=== PATIENT | female | born 1965 | race Caucasian/White ===

== ENCOUNTER 2017-05-04 09:42 | Emergency (ER) | payer OTHER ==
[~2017-05-04] VITALS: Ht 160 cm; Wt 63.5 kg
[~2017-05-04 09:42] MED LIST: ACET325 PO; ALBU3IS INH; ALBU90OI INH; ALBU90OI6; ALBU90OI6 INH; ALPR.5; ALUMAG30SU PO; BENZ100A PO; BUPR100 PO; CARV6.25 PO; COMBIVENT RESPIM4 GM INH; CONEST.625; CYCL10; CYCL10 PO; Chantix1 EACH; DIAZ5 PO; DIVA250EC PO; DOC250 PO; DOCU100 PO; DOXY100 PO; DULERA 200 MCG/13 GM INH; DULOXETINE HCL40 MG PO; ENOX40I SC; ERGO400 PO; FAMO20 PO; FERR325 PO; FLUO10 PO; FLUO20 PO; Ferrous Sulfat325 MG; GABA100 PO; GABA300 PO; HYDACE10B PO; HYDACE5; HYDACE5 PO; HYDPAM50 PO; Ipratr-Albuterol3 ML IH; K-TAB ER20 MEQ PO; LACT10SY PO; LAMO25 PO; LEVFLO500 PO; LIDO2TG30 TOP; LORA1 PO; MOME220I INH; NAPR375 PO; NAPR500 PO; NICO14TP TOP; OMEP20ER PO; OMEPRAZOLE; OXYC5; OXYC5 PO; PENVK250; PENVK500 PO; PRED20 PO; PREG50 PO; PROCODE120 PO; PROM25 PO; Percocet 5-3251 EACH PO; Prednisone20 MG PO; Proventil5 MG/1 ML INH; RXHYDACE PO; RXONDA4ODT MM; RXPROM25 PO; Senna8.6 M1 PO; TEMA15; TEMA15 PO; TEMA30; TEMA30 PO; TIOT18 INH; TRAM50 PO; TRAZ100; TRAZ100 PO; TRAZ150T57 PO; TRAZ50 PO; VANCO 1 GR1 GM/250 M IV; VICODIN; Ventolin Soln3 ML INH; XARELTO15 MG PO; Zithromax250 MG PO
[2017-05-04 10:35] LABS: BASOPHILS ABSOLUTE AUTO 0.04 K/mm3 (0.00-0.23); BASOPHILS PERCENT AUTO 1 % (0-2); EOSINOPHILS ABSOLUTE AUTO 0.15 K/mm3 (0.00-0.68); EOSINOPHILS PERCENT AUTO 2 % (0-6); Hemoglobin 13.1 g/dL (11.5-16.0); IMMATURE GRAN ABSOLUTE AUTO 0.03 K/mm3 (0.00-0.10); IMMATURE GRAN PERCENT AUTO 1 % (0-1); LYMPHOCYTES ABSOLUTE AUTO 3.39 K/mm3 (0.84-5.20); LYMPHOCYTES PERCENT AUTO 53 % (21-46); MONOCYTES ABSOLUTE AUTO 0.51 K/mm3 (0.16-1.47); MONOCYTES PERCENT AUTO 8 % (4-13); Mean Corpuscular HGB 31.4 pg (26.0-34.0); Mean Corpuscular HGB Conc 33.6 g/dL (31.5-36.5); Mean Corpuscular Volume 94 fL (80-100); Mean Platelet Volume 10.9 fL (9.1-12.4); NEUTROPHILS ABSOLUTE AUTO 2.27 K/mm3 (1.96-9.15); NEUTROPHILS PERCENT AUTO 36 % (41-73); Platelet Count 309 K/mm3 (150-400); RDW Coefficient Variation 13.5 % (11.7-14.2); Red Blood Cell Count 4.17 M/mm3 (3.80-5.20); White Blood Cell Count 6.39 K/mm3 (4.00-11.30)
[2017-05-04 10:52] LABS: Anion Gap 8 mmol/L (6-16); Blood Urea Nitrogen 9 mg/dL (8-24); Bun/Creatinine Ratio 11.1 (12.0-20.0); CO2, Blood 23 mmol/L (21-32); Calcium, Blood 9.2 mg/dL (8.5-10.1); Chloride, Blood 100 mmol/L (98-108); Creatinine, Blood 0.81 mg/dL (0.40-1.00); Glomerular Filtration Rate >60 (60-); Glucose, Blood 78 mg/dL (70-99); Sodium, Blood 131 mmol/L (136-145)
[2017-05-04] MEDS ORDERED: Motion Sickness25 M1 PO (11:18)
== END 2017-05-04 11:26 | disposition home or self-care (01) ==
LOC: ER 09:42
PROVIDERS: Emergency Medicine
DX: R42 Dizziness and giddiness (principal); J44.9 Chronic obstructive pulmonary disease, unspecified; F17.200 Nicotine dependence, unspecified, uncomplicated; F43.10 Post-traumatic stress disorder, unspecified; F31.9 Bipolar disorder, unspecified; I50.9 Heart failure, unspecified; Z79.899 Other long term (current) drug therapy; Z79.52 Long term (current) use of systemic steroids; Z79.2 Long term (current) use of antibiotics
CPT/HCPCS: 36415; 80048; 85025; 99283

== ENCOUNTER 2017-12-14 12:15 | Emergency (ER) | payer OTHER ==
[~2017-12-14] VITALS: Ht 160 cm; Wt 56.7 kg
[~2017-12-14 12:15] MED LIST changes: +Motion Sickness25 M1 PO
[2017-12-14] MEDS ORDERED: KETO10 PO (13:27)
[2017-12-14] MEDS ORDERED: METPRE4DP PO (13:27)
== END 2017-12-14 13:53 | disposition home or self-care (01) ==
LOC: ER 12:15
DX: M54.41 Lumbago with sciatica, right side (principal); M51.37 Other intervertebral disc degeneration, lumbosacral region; F31.9 Bipolar disorder, unspecified; I50.9 Heart failure, unspecified; J44.9 Chronic obstructive pulmonary disease, unspecified; F17.200 Nicotine dependence, unspecified, uncomplicated; Z88.8 Allergy status to other drugs, medicaments and biological substances; Z88.5 Allergy status to narcotic agent; Z79.899 Other long term (current) drug therapy; Z79.52 Long term (current) use of systemic steroids
CPT/HCPCS: 72100; 96372; 99283-25; J1885

== ENCOUNTER → 2018-01-09 | Outpatient (CLI) | payer OTHER ==
[~2018-01-09] MED LIST changes: +KETO10 PO; +METPRE4DP PO
[2018-01-17 15:08] LABS: COTININE 1320.4 ng/mL (.); NICOTINE 5191.8 ng/mL (.)
== END | disposition home or self-care (01) ==
LOC: LAB 11:00 → LAB SHORT 11:00
PROVIDERS: Nurse Practitioner Family
DX: M51.36 Other intervertebral disc degeneration, lumbar region (principal); F17.200 Nicotine dependence, unspecified, uncomplicated
CPT/HCPCS: G0480

== ENCOUNTER 2018-01-14 09:09 | Emergency (ER) | payer OTHER ==
[~2018-01-14] VITALS: Ht 160 cm; Wt 56.7 kg
[2018-01-14] MEDS ORDERED: TRAZ50 PO (09:57)
[2018-01-14] MEDS ORDERED: Prednisone20 MG PO (10:27)
== END 2018-01-14 10:20 | disposition home or self-care (01) ==
LOC: ER 09:09
DX: G89.29 Other chronic pain (principal); M54.5 Low back pain; F31.9 Bipolar disorder, unspecified; I50.9 Heart failure, unspecified; J44.9 Chronic obstructive pulmonary disease, unspecified; Z87.891 Personal history of nicotine dependence; Z88.8 Allergy status to other drugs, medicaments and biological substances; Z88.5 Allergy status to narcotic agent; Z79.899 Other long term (current) drug therapy; Z79.51 Long term (current) use of inhaled steroids; Z79.52 Long term (current) use of systemic steroids
CPT/HCPCS: 96374; 99283-25; J2930; Q0177

== ENCOUNTER → 2018-02-02 | Outpatient (CLI) | payer OTHER | LOC: LAB 19:55 → LAB SHORT 19:55 | DX: L02.01 Cutaneous abscess of face (principal) | CPT/HCPCS: 87070; 87077; 87147; 87186; 87205 ==

== ENCOUNTER 2018-06-09 18:01 | Inpatient (IN) | payer OTHER ==
[~2018-06-09] VITALS: Ht 157.5 cm; Wt 53.7 kg
[~2018-06-09 18:01] MED LIST changes: -Chantix1 EACH; +DULO60 PO; -DULOXETINE HCL40 MG PO; -Ferrous Sulfat325 MG; +Ferrous Sulfat325 MG PO; -GABA100 PO; -OMEPRAZOLE; +OMEPRAZOLE MAGN20 MG PO; +VARE1 PO
[2018-06-09 18:57] LABS: BASOPHILS ABSOLUTE AUTO 0.06 K/mm3 (0.00-0.23); BASOPHILS PERCENT AUTO 0 % (0-2); EOSINOPHILS ABSOLUTE AUTO 0.15 K/mm3 (0.00-0.68); EOSINOPHILS PERCENT AUTO 1 % (0-6); Hematocrit 37.2 % (33.0-51.0); Hemoglobin 11.9 g/dL (11.5-16.0); IMMATURE GRAN ABSOLUTE AUTO 0.04 K/mm3 (0.00-0.10); IMMATURE GRAN PERCENT AUTO 0 % (0-1); LYMPHOCYTES ABSOLUTE AUTO 2.95 K/mm3 (0.84-5.20); LYMPHOCYTES PERCENT AUTO 21 % (21-46); MONOCYTES ABSOLUTE AUTO 0.86 K/mm3 (0.16-1.47); MONOCYTES PERCENT AUTO 6 % (4-13); Mean Corpuscular HGB 29.8 pg (26.0-34.0); Mean Corpuscular Volume 93 fL (80-100); Mean Platelet Volume 10.2 fL (9.1-12.4); NEUTROPHILS ABSOLUTE AUTO 9.87 K/mm3 (1.96-9.15); NEUTROPHILS PERCENT AUTO 71 % (41-73); Platelet Count 254 K/mm3 (150-400); RDW Coefficient Variation 14.4 % (11.7-14.2); RDW Standard Deviation 49.5 fL (35.1-46.3); Red Blood Cell Count 3.99 M/mm3 (3.80-5.20); White Blood Cell Count 13.93 K/mm3 (4.00-11.30)
[2018-06-09 19:45] LABS: Alanine Aminotransfer (ALT/SGP 17 U/L (12-78); Albumin, Blood 3.4 g/dL (3.4-5.0); Albumin/Globulin Ratio 1.1 (0.8-1.8); Alk Phos 79 U/L (50-136); Anion Gap 7 mmol/L (6-16); Aspartate Aminotrans (AST/SGOT 7 U/L (12-37); Bilirubin, Total 0.2 mg/dL (0.1-1.0); Blood Urea Nitrogen 6 mg/dL (8-24); Bun/Creatinine Ratio 10.5 (12.0-20.0); CO2, Blood 24 mmol/L (21-32); Calcium, Blood 8.3 mg/dL (8.5-10.1); Chloride, Blood 105 mmol/L (98-108); Creatinine, Blood 0.57 mg/dL (0.40-1.00); Globulin, Blood 3.1 g/dL (2.2-4.0); Glomerular Filtration Rate >60 (60-); Glucose, Blood 93 mg/dL (70-99); Potassium, Blood 3.2 mmol/L (3.5-5.5); Sodium, Blood 136 mmol/L (136-145); Total Protein, Blood 6.5 g/dL (6.4-8.2)
[2018-06-09 20:28] LABS: Magnesium, Blood 2.1 mg/dL (1.6-2.4); Phosphorus, Blood 2.9 mg/dL (2.5-4.9)
[2018-06-09] MEDS ORDERED: GABA600 PO (20:37)
[2018-06-09] MEDS ORDERED: DICL75ER PO (20:41)
[2018-06-09 21:17] LABS: Triglycerides 107 mg/dL (30-160)
[2018-06-09 21:36] LABS: Valproic Acid 3.4 ug/mL (50.0-100.0)
--- NOTE | 2018-06-09 23:54 | NUR ---
06/09/18 7707 ATTEMPTING ANOTHER IV SITE PT MOVES LEFT ARM FREQUENTLY AND OCCLUDES FLOW. THREE RNS HAVE ATTEMPTED NEW IV SITE AND ARE STILL ATTEMPTING. PT NPO. PAIN MED GIVEN AND NOW MORE COMFORTABLE. JOKING WITH NURSES.
[2018-06-10 00:09] LABS: U Amphetamine Screen Not Detected; U Barbituate Screen Not Detected; U Benzodiazapine Screen Not Detected; U Buprenorphine Screen Not Detected; U Cannabinoids Screen Not Detected; U Cocaine Screen Not Detected; U Methadone Screen Not Detected; U Methamphetamine Screen Not Detected; U Opiates Screen DETECTED; U Oxycodone Screen Not Detected; U Phencyclidine Screen Not Detected; U Propoxyphene Screen Not Detected
--- NOTE | 2018-06-10 05:25 | NUR ---
06/10/18 0536 SAM PAGED FOR PALLIATIVE CARE. MESSAGE LEFT FOR CONSULT.
[2018-06-10 06:16] LABS: Source, Urine Clean Catch
[2018-06-10 06:18] LABS: Bilirubin, Urine Neg (Neg); Blood, Urine Neg (Neg); Glucose Qualitative, Urine Neg (Neg); Ketones, Urine Neg (Neg); Leukocyte Esterase, Urine Neg (Neg); Nitrite, Urine Neg (Neg); Protein, Urine Neg (Neg); Specific Gravity, Urine 1.005 (1.003-1.022); Urobilinogen, Urine NORM (Normal)
[2018-06-10 06:23] LABS: Appearance, Urine Clear (Clear); Color, Urine Pale Yellow (P-Yellow)
--- NOTE | 2018-06-10 07:37 | NUR ---
06/10/18 0600 Sleeping at present. VITALS STABLE. FREQUENTS CALLS THROUGHOUT NIGHT FOR MEDS. VITALS STABLE. VOIDING QS IN BEDPAN.
[2018-06-10 08:11] LABS: Hematocrit 39.6 % (33.0-51.0); Hemoglobin 12.7 g/dL (11.5-16.0); Mean Corpuscular HGB 29.3 pg (26.0-34.0); Mean Corpuscular HGB Conc 32.1 g/dL (31.5-36.5); Mean Corpuscular Volume 91 fL (80-100); Mean Platelet Volume 10.7 fL (9.1-12.4); Platelet Count 275 K/mm3 (150-400); RDW Coefficient Variation 14.6 % (11.7-14.2); RDW Standard Deviation 48.7 fL (35.1-46.3); Red Blood Cell Count 4.34 M/mm3 (3.80-5.20); White Blood Cell Count 13.84 K/mm3 (4.00-11.30)
[2018-06-10 08:24] LABS: Alanine Aminotransfer (ALT/SGP 13 U/L (12-78); Alk Phos 81 U/L (50-136); Anion Gap 6 mmol/L (6-16); Aspartate Aminotrans (AST/SGOT 7 U/L (12-37); Bilirubin, Total 0.4 mg/dL (0.1-1.0); Blood Urea Nitrogen 4 mg/dL (8-24); Bun/Creatinine Ratio 8.6 (12.0-20.0); CO2, Blood 23 mmol/L (21-32); Calcium, Blood 8.4 mg/dL (8.5-10.1); Chloride, Blood 111 mmol/L (98-108); Creatinine, Blood 0.47 mg/dL (0.40-1.00); Globulin, Blood 3.1 g/dL (2.2-4.0); Glomerular Filtration Rate >60 (60-); Glucose, Blood 99 mg/dL (70-99); Sodium, Blood 140 mmol/L (136-145); Total Protein, Blood 6.1 g/dL (6.4-8.2)
--- NOTE | 2018-06-10 15:37 | NUR ---
Patient gave me permission to work with her as a student nurse at 1500.
--- NOTE | 2018-06-10 18:49 | NUR ---
PT A/OX3, COOPERATIVE, THE PT IS ABLE TO GET UP WITH MINIMAL ASSIST HOWEVER DECLINED TO GET UP TODAY EVEN TO GO TO THE BATHROOM, THE PT WAS MEDICATED Q 2HRS FOR ABD PAIN, AND WAS ENCOURAGED TO ONLY TAKE SMALL AMOUNTS OF HER DIET AT A TIME, AND TO STOP IF SHE HAD INCREASING PAIN AND NAUSEA, THE PT APPEARS TO BE BREATHING EASILY RA, CALL LIGHT IN REACH WILL
--- NOTE | 2018-06-11 05:57 | NUR ---
SHIFT SUMMARY PT IS A&O. ADMITTED FOR ACUTE PANCREATITIS. STILL UNABLE TO TOLERATE CL DIET. HAS ONLY HAD SIPS AND CHIPS THIS SHIFT, SHE HAD ATTEMPTED CL'S PRIOR TO START OF SHIFT AND FOUND PAIN INCREASING. PT DENIED NAUSEA, BUT REPORTED PROBLEMS WITH ACID REFLUX AT HS AND THEREFORE DECLINED MOST PO MEDS. LAST BM AT LEAST 2 DAYS PRIOR TO ADMIT. AT START OF SHIFT, PT REPORTED PAIN IN UPPER ABD, BUT THIS AM SHE IS REPORTING BLOATING AND LOWER ABD PAIN WELL. HAD REFUSED STOOL SOFTNER ALL DAY YESTERDAY, BUT REPORTS THAT SHE HAS TO TAKE IT AT HOME DAILY. PT POSSIBLY WITH CONSTIPATION WELL PANCREATITIS. PT ALSO HAS NOT WANTED TO GET UP TO BSC AND HAS BEEN USING BEDPAN TO VOID. PT ENCOURAGED TO GET UP AND MOVE AROUND SOME, IF EVEN TO GET TO BSC TO VOID. HX OF COPD, BIPOLAR, AND HEP C+. IVF'S INFUSING PER EMAR. MEDICATED FOR PAIN PRN. PT CALLS WHEN AWAKE, WHETHER TIME FOR MEDS OR NOT AND THEN GOES BACK TO SLEEP. PT ABLE TO SLEEP A LITTLE MORE THAN SHE IS AWARE. RESTING QUIETLY AT THIS TIME. CALL LT IN REACH.
[2018-06-11 06:09] LABS: BASOPHILS ABSOLUTE AUTO 0.05 K/mm3 (0.00-0.23); BASOPHILS PERCENT AUTO 0 % (0-2); EOSINOPHILS ABSOLUTE AUTO 0.13 K/mm3 (0.00-0.68); EOSINOPHILS PERCENT AUTO 1 % (0-6); Hematocrit 40.3 % (33.0-51.0); Hemoglobin 12.8 g/dL (11.5-16.0); IMMATURE GRAN ABSOLUTE AUTO 0.05 K/mm3 (0.00-0.10); IMMATURE GRAN PERCENT AUTO 0 % (0-1); LYMPHOCYTES ABSOLUTE AUTO 3.34 K/mm3 (0.84-5.20); LYMPHOCYTES PERCENT AUTO 21 % (21-46); MONOCYTES ABSOLUTE AUTO 1.07 K/mm3 (0.16-1.47); MONOCYTES PERCENT AUTO 7 % (4-13); Mean Corpuscular HGB 29.2 pg (26.0-34.0); Mean Corpuscular HGB Conc 31.8 g/dL (31.5-36.5); Mean Corpuscular Volume 92 fL (80-100); Mean Platelet Volume 12.1 fL (9.1-12.4); NEUTROPHILS ABSOLUTE AUTO 11.33 K/mm3 (1.96-9.15); NEUTROPHILS PERCENT AUTO 71 % (41-73); NRBC ABSOLUTE 0.02 K/mm3 (0.00-0.02); NRBC Auto 0.1 /100 WBC (0.0-0.2); Platelet Count 204 K/mm3 (150-400); RDW Coefficient Variation 14.7 % (11.7-14.2); RDW Standard Deviation 49.5 fL (35.1-46.3); Red Blood Cell Count 4.39 M/mm3 (3.80-5.20); White Blood Cell Count 15.97 K/mm3 (4.00-11.30)
[2018-06-11 06:31] LABS: Alanine Aminotransfer (ALT/SGP 13 U/L (12-78); Albumin/Globulin Ratio 0.8 (0.8-1.8); Alk Phos 87 U/L (50-136); Amylase, Blood 247 U/L (25-115); Anion Gap 8 mmol/L (6-16); Aspartate Aminotrans (AST/SGOT 26 U/L (12-37); Bilirubin, Total 0.7 mg/dL (0.1-1.0); Blood Urea Nitrogen 3 mg/dL (8-24); Bun/Creatinine Ratio 6.3 (12.0-20.0); CO2, Blood 22 mmol/L (21-32); Calcium, Blood 8.8 mg/dL (8.5-10.1); Chloride, Blood 109 mmol/L (98-108); Creatinine, Blood 0.48 mg/dL (0.40-1.00); Globulin, Blood 3.7 g/dL (2.2-4.0); Glomerular Filtration Rate >60 (60-); Glucose, Blood 85 mg/dL (70-99); Potassium, Blood 4.8 mmol/L (3.5-5.5); Sodium, Blood 139 mmol/L (136-145); Total Protein, Blood 6.7 g/dL (6.4-8.2)
--- NOTE | 2018-06-11 14:33 | NUR ---
Marleny was talkative and welcoming of companionship. She tells me she has been "really sick for a long time." She admits to feeling tired of pain. She lives alone with her cats and worried about them while she's here. Marleny tells me her primary emotional support comes from friends, but she spends most of her time alone. She seemed to enjoy being herd and affirmed, and was appreciative of prayer. She knows she has a chronic illness, but she expects to be eve to live free from all pain. She is satisfied being a full-code. I will remain available.
--- NOTE | 2018-06-11 16:31 | NUR ---
PT A/OX3, PLEASANT AND COOPERATIVE, THE PT IS UP WITH MINIMAL ASSIST TO THE BATHROOM TODAY, PT REPORTED BEING CONSTIPATED AND AGREED TO TAKE THE ORDERED STOOL SOFTNER TODAY, PT WAS MEDICATED FOR PAIN T/O THE DAY CONSISTANTLY, HOWEVER THE PT WAS ABLE TO TAKE SOME CLEARS JELLO AND DRINKS TODAY WITH OUT EMISIS, THE PT WAS NAUSEATED HOWEVER AND MEDICATED FOR THAT, VISITOR AT THE BEDSIDE TODAY, CALL LIGHT IN REACH
--- NOTE | 2018-06-11 18:00 | NUR ---
Initial Visit: Palliative Care Consult for symptom management. Pt is A&O and reports 7/10 pain. She reports the current regimen is helpul but does not last long and the pain is back. Pt reports that she is of [employer] and lives at home alone with her dog and cat. Engaged in therapeutic conversation about pain. Pt reports significant anxiety when having pain. Pt is tearful at times during visit. Discussed distraction techniques to keep her mind off the pain such as reading, deep breathing techniques, or watching television. Educated Pt on pain and anxiety and how a cascade effect can occur. Pt alsor reports difficulty sleeping at night due to the pain and anxiety. Discussed with Pt of the option for anxiety medication which may manage her anxiety, sleep, and pain. Pt is agreeable to this idea. Pt reports no other concerns at this time. Spoke with Pt's nurse Joselito and he is agreeable to plan for anti anxiety medication. No other concerns reported by Joselito. Spoke with Dr Anna and requested Ativan for anxiety and he is agreeable. Dr Anna reports that he will place the order. Plan is for continued monitoring of symptom management. Will remain available.
--- NOTE | 2018-06-12 03:52 | NUR ---
SHIFT SUMMARY NO ACUTE CHANGES TO PRESENT THIS SHIFT. PT HAS BEEN INDEPENDANT TO [facility] [place] TONIGHT AND DOING FINE. DOES NOT APPEAR TO BE IN PAIN WHILE IN BED OR UP AMBULATING. PT STILL CALLS FOR PAIN MEDICATION WHEN EVER SHE IS AWAKE, EVEN IF SHE JUST GOT IT AND FORGOT WHAT TIME IT WAS. PT SEEMS TO USE THE DILAUDID TO PUT HER TO SLEEP, BUT YET SHE REFUSED HER TRAZADONE. SEEMS TO ACTUALLY BE HAPPIER WITH SOMEONE IN THERE TO TALK WITH HER MORE THAN ANYTHING. STILL NO BM, BUT REPORTED THAT SHE IS "PASSING GAS". WENT DOWN TO IMAGING AT START OF SHIFT FOR CT. TOLERATED WELL. INDEPENDANT FROM W/C TO BED. MUCH IMPROVEMENT FROM YESTERDAY WHEN [facility]OULD [facility] BE WILLING TO [facility]. PT HAS BEEN TOLERATING CL DIET. REPORTED THAT SHE IS HUNGRY AND WOULD LIKE SOMETHING WITH SUBSTANCE. CALL LT IN REACH.
[2018-06-12 08:14] LABS: BASOPHILS ABSOLUTE AUTO 0.06 K/mm3 (0.00-0.23); BASOPHILS PERCENT AUTO 1 % (0-2); EOSINOPHILS ABSOLUTE AUTO 0.53 K/mm3 (0.00-0.68); EOSINOPHILS PERCENT AUTO 4 % (0-6); Hematocrit 34.1 % (33.0-51.0); Hemoglobin 11.1 g/dL (11.5-16.0); IMMATURE GRAN ABSOLUTE AUTO 0.03 K/mm3 (0.00-0.10); IMMATURE GRAN PERCENT AUTO 0 % (0-1); LYMPHOCYTES ABSOLUTE AUTO 3.26 K/mm3 (0.84-5.20); LYMPHOCYTES PERCENT AUTO 25 % (21-46); MONOCYTES ABSOLUTE AUTO 0.92 K/mm3 (0.16-1.47); MONOCYTES PERCENT AUTO 7 % (4-13); Mean Corpuscular HGB 30.2 pg (26.0-34.0); Mean Corpuscular HGB Conc 32.6 g/dL (31.5-36.5); Mean Corpuscular Volume 93 fL (80-100); Mean Platelet Volume 10.6 fL (9.1-12.4); NEUTROPHILS ABSOLUTE AUTO 8.08 K/mm3 (1.96-9.15); NEUTROPHILS PERCENT AUTO 63 % (41-73); Platelet Count 223 K/mm3 (150-400); RDW Coefficient Variation 14.9 % (11.7-14.2); RDW Standard Deviation 51.5 fL (35.1-46.3); Red Blood Cell Count 3.67 M/mm3 (3.80-5.20); White Blood Cell Count 12.88 K/mm3 (4.00-11.30)
[2018-06-12 08:43] LABS: Amylase, Blood 72 U/L (25-115)
[2018-06-12 08:50] LABS: Alanine Aminotransfer (ALT/SGP 7 U/L (12-78); Albumin, Blood 2.6 g/dL (3.4-5.0); Albumin/Globulin Ratio 0.8 (0.8-1.8); Alk Phos 72 U/L (50-136); Anion Gap 7 mmol/L (6-16); Aspartate Aminotrans (AST/SGOT 9 U/L (12-37); Bilirubin, Total 0.5 mg/dL (0.1-1.0); Blood Urea Nitrogen 3 mg/dL (8-24); Bun/Creatinine Ratio 5.5 (12.0-20.0); CO2, Blood 24 mmol/L (21-32); Calcium, Blood 8.5 mg/dL (8.5-10.1); Chloride, Blood 110 mmol/L (98-108); Creatinine, Blood 0.55 mg/dL (0.40-1.00); Globulin, Blood 3.1 g/dL (2.2-4.0); Glomerular Filtration Rate >60 (60-); Glucose, Blood 82 mg/dL (70-99); Potassium, Blood 4.5 mmol/L (3.5-5.5); Sodium, Blood 141 mmol/L (136-145); Total Protein, Blood 5.7 g/dL (6.4-8.2)
--- NOTE | 2018-06-12 13:39 | NUR ---
pt discharging home states pain is much improved. She remebered Navneet and appreciated his care. Pt is high risk readmission . Will have navneet follow up with outpatient phone call.
[2018-06-12] MEDS ORDERED: MOTION RELIEF25 MG PO (14:09)
[2018-06-12] MEDS ORDERED: OXYC10ER PO (14:12)
[2018-06-12] MEDS ORDERED: LORA1 PO (14:12)
[2018-06-12] MEDS ORDERED: Promethazine12.5 M1 PO (14:13)
[2018-06-12] MEDS ORDERED: ONDA4ODT MM (14:13)
--- NOTE | 2018-06-12 15:26 | NUR ---
D/C INSTRUCTIONS PROVIDED AND EXPLAINED. IV REMOVED. MEDS FAXED [facility]. PT D/C VIA AMBULATION VIA [facility] AT 1320.
== END 2018-06-12 15:25 | disposition home or self-care (01) | DRG 439 ==
LOC: ER 18:01 → MEDS 20:43 → ENPENDDIS 06-12 15:06 → MEDS 06-12 15:25
PROVIDERS: Emergency Medicine; Family Medicine; Nurse Practitioner Acute Care; ADMIT Hospitalist
DX: K85.90 Acute pancreatitis without necrosis or infection, unspecified (principal); I50.32 Chronic diastolic (congestive) heart failure; B95.62 Methicillin resistant Staphylococcus aureus infection as the cause of diseases classified elsewhere; J44.9 Chronic obstructive pulmonary disease, unspecified; F32.9 Major depressive disorder, single episode, unspecified; D50.9 Iron deficiency anemia, unspecified; E87.6 Hypokalemia; M79.7 Fibromyalgia; F31.9 Bipolar disorder, unspecified; F41.9 Anxiety disorder, unspecified; F17.210 Nicotine dependence, cigarettes, uncomplicated; Z88.8 Allergy status to other drugs, medicaments and biological substances; Z86.718 Personal history of other venous thrombosis and embolism; Z79.52 Long term (current) use of systemic steroids; Z79.899 Other long term (current) drug therapy
CPT/HCPCS: 36415; 71250; 74022; 74177; 76700; 80053; 80164; 81003; 82150; 83690; 83735; 84100; 84478; 85025; 85027; 87081; 94010; 94640; 94664; 94667; 94760; 94762; 96361; 96374; 96375; 96376; 98960; 99285-25; 99407; G0480; J1170; J1650; J2405; J2550; J3480; J7030; J7050; Q9967

== ENCOUNTER 2018-07-27 07:13 | Day surgery (SDC) | payer OTHER ==
[~2018-07-27] VITALS: Ht 157.5 cm; Wt 61.7 kg
[~2018-07-27 07:13] MED LIST changes: +DICL75ER PO; +GABA600 PO; +MOTION RELIEF25 MG PO; +ONDA4ODT MM; +OXYC10ER PO; +Promethazine12.5 M1 PO
--- NOTE | 2018-07-27 07:28 | NUR ---
Ambulatory in Day SurgeryPatient states colon prep results clear. History, Chart, Medications and Allergies reviewed before start of procedure.Patient confirms NPO status and agrees with scheduled surgery. Pre-Op teaching done. Pt verbalizes understanding. Patient States Post-Procedure ride home has been arranged.
--- NOTE | 2018-07-27 08:20 | NUR ---
07/27/[address] HERE TO PROVIDE ANESTHESIA CARE, PLEASE SEE ANESTHESIA RECORD. History, Chart, Medications and Allergies reviewed before start of procedure. Patient confirms NPO status and agrees with scheduled surgery. PATIENT CONFIRMS NPO STATUS AND AGREES WITH SCHEDULED PROCEDURE. MONITOR INTACT WITH CONTINUOUS PULSE OXIMETRY AND INTERMITTENT BP. O2 VIA POM MASK AT 10 L.
--- NOTE | 2018-07-27 09:48 | NUR ---
Discharge instructions reviewed with patient. Patient verbalizes understanding. Copy given to patient to take home. Discharged via wheelchair to private car for ride home.
== END 2018-07-27 09:45 | disposition home or self-care (01) ==
LOC: ORSCMMR 07:13 → ORD 08:00 → ORSCMMR 08:00
PROVIDERS: Internal Medicine Gastroenterology
PROC: 0DBE8ZX Excision of Large Intestine, Via Natural or Artificial Opening Endoscopic, Diagnostic (ICD-10-PCS; principal; 2018-07-27 08:00)
PROC: 0DB48ZX Excision of Esophagogastric Junction, Via Natural or Artificial Opening Endoscopic, Diagnostic (ICD-10-PCS; principal; 2018-07-27 08:00)
PROC: 0DB98ZX Excision of Duodenum, Via Natural or Artificial Opening Endoscopic, Diagnostic (ICD-10-PCS; principal; 2018-07-27 08:00)
PROC: 0DB68ZX Excision of Stomach, Via Natural or Artificial Opening Endoscopic, Diagnostic (ICD-10-PCS; principal; 2018-07-27 08:00)
PROC: 0DBC8ZX Excision of Ileocecal Valve, Via Natural or Artificial Opening Endoscopic, Diagnostic (ICD-10-PCS; principal; 2018-07-27 08:00)
DX: R10.13 Epigastric pain (principal); R10.84 Generalized abdominal pain; D50.0 Iron deficiency anemia secondary to blood loss (chronic); K21.9 Gastro-esophageal reflux disease without esophagitis; K52.9 Noninfective gastroenteritis and colitis, unspecified; R11.0 Nausea; K44.9 Diaphragmatic hernia without obstruction or gangrene; I10 Essential (primary) hypertension; F17.210 Nicotine dependence, cigarettes, uncomplicated; B19.20 Unspecified viral hepatitis C without hepatic coma; Z79.899 Other long term (current) drug therapy
CPT/HCPCS: 88305; 88342; J2405; J3010; J7120

== ENCOUNTER 2018-08-04 18:40 | Emergency (ER) | payer OTHER ==
[~2018-08-04] VITALS: Ht 160 cm; Wt 46.7 kg
[2018-08-04 19:42] LABS: BASOPHILS ABSOLUTE AUTO 0.01 K/mm3 (0.00-0.23); BASOPHILS PERCENT AUTO 0 % (0-2); EOSINOPHILS ABSOLUTE AUTO 0.01 K/mm3 (0.00-0.68); EOSINOPHILS PERCENT AUTO 0 % (0-6); Hematocrit 37.7 % (33.0-51.0); Hemoglobin 12.1 g/dL (11.5-16.0); IMMATURE GRAN ABSOLUTE AUTO 0.02 K/mm3 (0.00-0.10); IMMATURE GRAN PERCENT AUTO 0 % (0-1); LYMPHOCYTES ABSOLUTE AUTO 0.52 K/mm3 (0.84-5.20); LYMPHOCYTES PERCENT AUTO 8 % (21-46); MONOCYTES ABSOLUTE AUTO 0.04 K/mm3 (0.16-1.47); MONOCYTES PERCENT AUTO 1 % (4-13); Mean Corpuscular HGB 29.6 pg (26.0-34.0); Mean Corpuscular HGB Conc 32.1 g/dL (31.5-36.5); Mean Corpuscular Volume 92 fL (80-100); Mean Platelet Volume 10.5 fL (9.1-12.4); NEUTROPHILS PERCENT AUTO 91 % (41-73); Platelet Count 299 K/mm3 (150-400); RDW Coefficient Variation 15.5 % (11.7-14.2); RDW Standard Deviation 52.9 fL (35.1-46.3); Red Blood Cell Count 4.09 M/mm3 (3.80-5.20)
[2018-08-04 20:08] LABS: Alanine Aminotransfer (ALT/SGP 17 U/L (12-78); Albumin, Blood 3.6 g/dL (3.4-5.0); Alk Phos 68 U/L (50-136); Anion Gap 6 mmol/L (6-16); Aspartate Aminotrans (AST/SGOT 14 U/L (12-37); Bilirubin, Total 0.2 mg/dL (0.1-1.0); Blood Urea Nitrogen 10 mg/dL (8-24); Bun/Creatinine Ratio 22.4 (12.0-20.0); CO2, Blood 22 mmol/L (21-32); Calcium, Blood 9.4 mg/dL (8.5-10.1); Chloride, Blood 108 mmol/L (98-108); Creatinine, Blood 0.45 mg/dL (0.40-1.00); Globulin, Blood 3.6 g/dL (2.2-4.0); Glomerular Filtration Rate >60 (60-); Glucose, Blood 148 mg/dL (70-99); Potassium, Blood 4.7 mmol/L (3.5-5.5); Sodium, Blood 136 mmol/L (136-145); Total Protein, Blood 7.2 g/dL (6.4-8.2)
== END 2018-08-04 21:55 | disposition home or self-care (01) ==
LOC: ER 18:40
PROVIDERS: Emergency Medicine
DX: R10.13 Epigastric pain (principal); R11.0 Nausea; R19.7 Diarrhea, unspecified; Z88.5 Allergy status to narcotic agent; Z79.899 Other long term (current) drug therapy; Z79.891 Long term (current) use of opiate analgesic; F43.10 Post-traumatic stress disorder, unspecified; F31.9 Bipolar disorder, unspecified; J44.9 Chronic obstructive pulmonary disease, unspecified; I50.9 Heart failure, unspecified
CPT/HCPCS: 36415; 80053; 83690; 85025; 96361; 96374; 96375; 99284-25; J1885; J2765; J3010; J7030

== ENCOUNTER 2018-08-25 17:02 | Emergency (ER) | payer OTHER ==
[~2018-08-25] VITALS: Ht 157.5 cm; Wt 52.2 kg
[2018-08-25 18:06] LABS: Source, Urine Clean Catch
[2018-08-25 18:13] LABS: Appearance, Urine Clear (Clear); Bilirubin, Urine Neg (Neg); Blood, Urine Neg (Neg); Color, Urine Yellow (P-Yellow); Glucose Qualitative, Urine Neg (Neg); Ketones, Urine Neg (Neg); Leukocyte Esterase, Urine Neg (Neg); Nitrite, Urine Neg (Neg); Protein, Urine Neg (Neg); Specific Gravity, Urine 1.015 (1.003-1.022); Urobilinogen, Urine NORM (Normal)
[2018-08-25 18:34] LABS: BASOPHILS ABSOLUTE AUTO 0.06 K/mm3 (0.00-0.23); BASOPHILS PERCENT AUTO 1 % (0-2); EOSINOPHILS ABSOLUTE AUTO 0.21 K/mm3 (0.00-0.68); EOSINOPHILS PERCENT AUTO 2 % (0-6); Hematocrit 34.8 % (33.0-51.0); Hemoglobin 11.1 g/dL (11.5-16.0); IMMATURE GRAN ABSOLUTE AUTO 0.04 K/mm3 (0.00-0.10); IMMATURE GRAN PERCENT AUTO 0 % (0-1); LYMPHOCYTES ABSOLUTE AUTO 3.58 K/mm3 (0.84-5.20); LYMPHOCYTES PERCENT AUTO 39 % (21-46); MONOCYTES ABSOLUTE AUTO 0.65 K/mm3 (0.16-1.47); MONOCYTES PERCENT AUTO 7 % (4-13); Mean Corpuscular HGB 29.8 pg (26.0-34.0); Mean Corpuscular HGB Conc 31.9 g/dL (31.5-36.5); Mean Corpuscular Volume 93 fL (80-100); Mean Platelet Volume 10.2 fL (9.1-12.4); NEUTROPHILS ABSOLUTE AUTO 4.71 K/mm3 (1.96-9.15); NEUTROPHILS PERCENT AUTO 51 % (41-73); Platelet Count 274 K/mm3 (150-400); RDW Standard Deviation 51.3 fL (35.1-46.3); Red Blood Cell Count 3.73 M/mm3 (3.80-5.20); White Blood Cell Count 9.25 K/mm3 (4.00-11.30)
[2018-08-25] MEDS ORDERED: TRAZ100 PO (18:57)
[2018-08-25] MEDS ORDERED: Norco 10-325 T1 EACH PO (18:58)
[2018-08-25] MEDS ORDERED: GABA300 PO (18:59)
[2018-08-25] MEDS ORDERED: Neurontin300 MG PO (18:59)
[2018-08-25 19:03] LABS: Alanine Aminotransfer (ALT/SGP 22 U/L (12-78); Albumin, Blood 3.2 g/dL (3.4-5.0); Alk Phos 64 U/L (50-136); Anion Gap 5 mmol/L (6-16); Aspartate Aminotrans (AST/SGOT 13 U/L (12-37); Bilirubin, Total 0.3 mg/dL (0.1-1.0); Blood Urea Nitrogen 5 mg/dL (8-24); Bun/Creatinine Ratio 7.5 (12.0-20.0); CO2, Blood 25 mmol/L (21-32); Calcium, Blood 8.8 mg/dL (8.5-10.1); Chloride, Blood 101 mmol/L (98-108); Creatinine, Blood 0.67 mg/dL (0.40-1.00); Globulin, Blood 3.1 g/dL (2.2-4.0); Glomerular Filtration Rate >60 (60-); Glucose, Blood 88 mg/dL (70-99); Potassium, Blood 3.6 mmol/L (3.5-5.5); Sodium, Blood 131 mmol/L (136-145); Total Protein, Blood 6.3 g/dL (6.4-8.2); Troponin I <0.015 ng/mL (0.000-0.040)
[2018-08-25] MEDS ORDERED: Prednisone20 MG PO (19:12)
== END 2018-08-25 19:20 | disposition home or self-care (01) ==
LOC: ER 17:02
PROVIDERS: Emergency Medicine
DX: J44.1 Chronic obstructive pulmonary disease with (acute) exacerbation (principal); R60.9 Edema, unspecified; I50.9 Heart failure, unspecified; F31.9 Bipolar disorder, unspecified; F43.10 Post-traumatic stress disorder, unspecified; M79.7 Fibromyalgia; F17.210 Nicotine dependence, cigarettes, uncomplicated; Z88.5 Allergy status to narcotic agent; Z79.899 Other long term (current) drug therapy; Z86.19 Personal history of other infectious and parasitic diseases
CPT/HCPCS: 36415; 71046; 80053; 81003; 83880; 84484; 85025; 93005; 93010; 94640; 99284-25; J7512

== ENCOUNTER → 2018-10-14 | Outpatient (CLI) | payer OTHER ==
[~2018-10-14] MED LIST changes: +Neurontin300 MG PO; +Norco 10-325 T1 EACH PO; +ZOLP10 PO
== END ==
LOC: PLD 07:32 → LAB SHORT 07:32
DX: N89.1 Moderate vaginal dysplasia (principal); A63.0 Anogenital (venereal) warts
CPT/HCPCS: 88305

== ENCOUNTER → 2018-10-14 | Outpatient (CLI) | payer OTHER | LOC: LAB SHORT 18:23 → LAB 18:23 | DX: N89.8 Other specified noninflammatory disorders of vagina (principal) | CPT/HCPCS: 87070; 87077; 87186; 87205 ==

== ENCOUNTER → 2018-10-16 | Outpatient (CLI) | payer OTHER | LOC: LAB UCHC 15:35 → LAB SHORT 15:35 | DX: N94.89 Other specified conditions associated with female genital organs and menstrual cycle (principal) | CPT/HCPCS: 87529 ==

== ENCOUNTER → 2018-10-22 | Outpatient (CLI) | payer OTHER ==
[2018-10-28 15:06] LABS: COTININE 245.3 ng/mL (.); NICOTINE 500.4 ng/mL (.)
== END | disposition home or self-care (01) ==
LOC: LAB SHORT 10:26 → LAB UCHC 10:26 → EDSTATUS 09-03 14:20 → LAB FUT 09-03 14:20
PROVIDERS: Nurse Practitioner Family
DX: F17.200 Nicotine dependence, unspecified, uncomplicated (principal)
CPT/HCPCS: G0480

== ENCOUNTER 2018-10-27 17:04 | Emergency (ER) | payer OTHER ==
[~2018-10-27] VITALS: Ht 157.5 cm; Wt 49.0 kg
[~2018-10-27 17:04] MED LIST changes: -ZOLP10 PO
== END 2018-10-27 17:56 | disposition home or self-care (01) ==
LOC: ER 17:04
DX: L02.01 Cutaneous abscess of face (principal); L03.211 Cellulitis of face; Z88.5 Allergy status to narcotic agent; Z79.899 Other long term (current) drug therapy; Z79.891 Long term (current) use of opiate analgesic; Z79.52 Long term (current) use of systemic steroids; F31.9 Bipolar disorder, unspecified; F43.10 Post-traumatic stress disorder, unspecified; I50.9 Heart failure, unspecified; J44.9 Chronic obstructive pulmonary disease, unspecified; F17.210 Nicotine dependence, cigarettes, uncomplicated; Z85.44 Personal history of malignant neoplasm of other female genital organs
CPT/HCPCS: 10060; 99283-25

== ENCOUNTER 2018-11-26 22:47 | Emergency (ER) | payer OTHER ==
[~2018-11-26] VITALS: Ht 157.5 cm; Wt 52.2 kg
[2018-11-26] MEDS ORDERED: ZOLP10 PO (23:04)
== END 2018-11-27 00:13 | disposition home or self-care (01) ==
LOC: ER 22:47
DX: T81.31XA Disruption of external operation (surgical) wound, not elsewhere classified, initial encounter (principal); I50.9 Heart failure, unspecified; F31.9 Bipolar disorder, unspecified; F43.10 Post-traumatic stress disorder, unspecified; J44.9 Chronic obstructive pulmonary disease, unspecified; F17.200 Nicotine dependence, unspecified, uncomplicated; Z88.5 Allergy status to narcotic agent; Z79.899 Other long term (current) drug therapy
CPT/HCPCS: 99283; A9270-GY

== ENCOUNTER 2019-02-08 12:51 | Emergency (ER) | payer OTHER ==
[~2019-02-08] VITALS: Ht 157.5 cm; Wt 44.0 kg
[~2019-02-08 12:51] MED LIST changes: +ZOLP10 PO
== END 2019-02-08 20:03 | disposition left against medical advice (07) ==
LOC: ER 12:51
DX: R30.0 Dysuria (principal); Z88.5 Allergy status to narcotic agent; Z79.899 Other long term (current) drug therapy; F43.10 Post-traumatic stress disorder, unspecified; F31.9 Bipolar disorder, unspecified; I50.9 Heart failure, unspecified; J43.9 Emphysema, unspecified; F17.210 Nicotine dependence, cigarettes, uncomplicated
CPT/HCPCS: 99283

== ENCOUNTER → 2020-03-13 | Outpatient (CLI) | payer OTHER ==
[~2020-03-13] MED LIST changes: +PANT40 PO
== END ==
LOC: LAB SHORT 12:13 → LAB UCHC 12:13
DX: N94.89 Other specified conditions associated with female genital organs and menstrual cycle (principal)
CPT/HCPCS: 87070; 87205; 87529

== ENCOUNTER 2020-03-31 15:47 | Inpatient (IN) | payer OTHER ==
[~2020-03-31] VITALS: Ht 160 cm; Wt 58.6 kg
[~2020-03-31 15:47] MED LIST changes: -PANT40 PO
[2020-03-31 16:58] LABS: BASOPHILS ABSOLUTE AUTO 0.08 K/mm3 (0.00-0.23); BASOPHILS PERCENT AUTO 0 % (0-2); EOSINOPHILS PERCENT AUTO 0 % (0-6); Hematocrit 31.9 % (33.0-51.0); Hemoglobin 10.1 g/dL (11.5-16.0); IMMATURE GRAN ABSOLUTE AUTO 0.21 K/mm3 (0.00-0.10); IMMATURE GRAN PERCENT AUTO 1 % (0-1); LYMPHOCYTES ABSOLUTE AUTO 1.24 K/mm3 (0.84-5.20); LYMPHOCYTES PERCENT AUTO 4 % (21-46); MONOCYTES ABSOLUTE AUTO 1.43 K/mm3 (0.16-1.47); MONOCYTES PERCENT AUTO 5 % (4-13); Mean Corpuscular HGB 27.2 pg (26.0-34.0); Mean Corpuscular HGB Conc 31.7 g/dL (31.5-36.5); Mean Corpuscular Volume 86 fL (80-100); Mean Platelet Volume 10.3 fL (9.1-12.4); NEUTROPHILS ABSOLUTE AUTO 28.38 K/mm3 (1.96-9.15); NEUTROPHILS PERCENT AUTO 90 % (41-73); Platelet Count 235 K/mm3 (150-400); RDW Coefficient Variation 14.9 % (11.7-14.2); RDW Standard Deviation 47.2 fL (35.1-46.3); Red Blood Cell Count 3.72 M/mm3 (3.80-5.20); White Blood Cell Count 31.34 K/mm3 (4.00-11.30)
[2020-03-31 17:09] LABS: International Normalized Ratio 1.08; Prothrombin Time Results 11.5 Sec (9.7-11.5)
[2020-03-31 17:15] LABS: BAND PERCENT MAN 1 % (0-8); BASOPHILS PERCENT MAN 0 % (0-2); EOSINOPHILS PERCENT MAN 0 % (0-6); LYMPHOCYTES ABSOLUTE MAN 1.25 K/mm3 (0.84-5.20); LYMPHOCYTES PERCENT MAN 4 % (21-46); MONOCYTES ABSOLUTE MAN 0.62 K/mm3 (0.16-1.47); MONOCYTES PERCENT MAN 2 % (4-13); NEUTROPHILS ABSOLUTE MAN 29.45 K/mm3 (1.96-9.15); SEG NEUTROPHILS PERCENT MAN 93 % (41-73); TOTAL CELLS COUNTED 100
[2020-03-31 17:32] LABS: Alanine Aminotransfer (ALT/SGP 13 U/L (12-78); Albumin/Globulin Ratio 0.9 (0.8-1.8); Alk Phos 57 U/L (50-136); Anion Gap 11 mmol/L (6-16); Aspartate Aminotrans (AST/SGOT 22 U/L (12-37); Bilirubin, Total 0.7 mg/dL (0.1-1.0); Blood Urea Nitrogen 8 mg/dL (8-24); Bun/Creatinine Ratio 9.2 (12.0-20.0); CO2, Blood 19 mmol/L (21-32); Calcium, Blood 8.1 mg/dL (8.5-10.1); Chloride, Blood 95 mmol/L (98-108); Creatinine, Blood 0.87 mg/dL (0.40-1.00); Globulin, Blood 3.3 g/dL (2.2-4.0); Glomerular Filtration Rate >60 (60-); Glucose, Blood 101 mg/dL (70-99); Potassium, Blood 3.5 mmol/L (3.5-5.5); Sodium, Blood 125 mmol/L (136-145); Total Protein, Blood 6.3 g/dL (6.4-8.2)
[2020-03-31 17:52] LABS: Influenza A, PCR Negative (NEGATIVE); Influenza B, PCR Negative (NEGATIVE); Resp Syncytial Virus, PCR Negative (NEGATIVE); SARS-Cov-2 (COVID-19) PCR, MMC Negative (NEGATIVE)
[2020-03-31 19:10] LABS: PO2 Arterial 87.7 mmHg (80-100)
[2020-03-31 19:36] LABS: Adenovirus Not Detected (NOT DETECT); Coronavirus 229E Not Detected (NOT DETECT); Coronavirus HKU1 Not Detected (NOT DETECT); Coronavirus NL63 Not Detected (NOT DETECT)
[2020-03-31 19:37] LABS: Bordetella pertussis Not Detected (NOT DETECT); Chlamydophila pneumoniae Not Detected (NOT DETECT); Coronavirus OC43 Not Detected (NOT DETECT); Human Metapneumovirus Not Detected (NOT DETECT); Human Rhinovirus/Enterovirus Not Detected (NOT DETECT); Influenza A/2009-H1 Not Detected (NOT DETECT); Influenza A/H1 Not Detected (NOT DETECT); Influenza A/H3 Not Detected (NOT DETECT); Influenza B Not Detected (NOT DETECT); Mycoplasma pneumoniae Not Detected (NOT DETECT); Parainfluenza Virus 1 Not Detected (NOT DETECT); Parainfluenza Virus 2 Not Detected (NOT DETECT); Parainfluenza Virus 3 Not Detected (NOT DETECT); Parainfluenza Virus 4 Not Detected (NOT DETECT); Respiratory Syncytial Virus Not Detected (NOT DETECT); SARS-Cov-2 (COVID-19), BioFire Not Detected (NOT DETECT)
[2020-03-31] MEDS ORDERED: OXYC5 PO (21:42)
[2020-03-31] MEDS ORDERED: PANT40 PO (21:48)
[2020-04-01 01:13] LABS: Source, Urine Catheter
[2020-04-01 01:16] LABS: Appearance, Urine Clear (Clear); Bilirubin, Urine Neg (Neg); Blood, Urine 1+ (Neg); Color, Urine Yellow (P-Yellow); Glucose Qualitative, Urine Neg (Neg); Ketones, Urine Neg (Neg); Leukocyte Esterase, Urine 3+ (Neg); Nitrite, Urine Neg (Neg); Protein, Urine 1+ (Neg); Urobilinogen, Urine NORM (Normal); pH, Urine 6.5 (5.0-8.0)
[2020-04-01 01:21] LABS: Red Blood Cells, Urine 0-2 /hpf (0-2); Squamous Epithelial Cells Few /hpf (Few)
[2020-04-01 01:22] LABS: Amorphous Light (0-Heavy); Bacteria Mod /hpf
[2020-04-01 04:33] LABS: Hematocrit 28.5 % (33.0-51.0); Hemoglobin 9.3 g/dL (11.5-16.0); Mean Corpuscular HGB 27.8 pg (26.0-34.0); Mean Corpuscular HGB Conc 32.6 g/dL (31.5-36.5); Mean Corpuscular Volume 85 fL (80-100); Mean Platelet Volume 9.7 fL (9.1-12.4); Platelet Count 209 K/mm3 (150-400); RDW Coefficient Variation 14.8 % (11.7-14.2); RDW Standard Deviation 46.3 fL (35.1-46.3); Red Blood Cell Count 3.35 M/mm3 (3.80-5.20); White Blood Cell Count 30.78 K/mm3 (4.00-11.30)
[2020-04-01 04:50] LABS: Albumin, Blood 3.4 g/dL (3.4-5.0); Anion Gap 11 mmol/L (6-16); Blood Urea Nitrogen 8 mg/dL (8-24); Bun/Creatinine Ratio 12.9 (12.0-20.0); CO2, Blood 18 mmol/L (21-32); Calcium, Blood 6.9 mg/dL (8.5-10.1); Chloride, Blood 102 mmol/L (98-108); Creatinine, Blood 0.62 mg/dL (0.40-1.00); Glomerular Filtration Rate >60 (60-); Glucose, Blood 108 mg/dL (70-99); Phosphorus, Blood 1.9 mg/dL (2.5-4.9); Potassium, Blood 3.3 mmol/L (3.5-5.5); Sodium, Blood 131 mmol/L (136-145)
[2020-04-01 10:03] LABS: Percent Saturation 5.7 % (15.0-50.0)
[2020-04-01 13:33] LABS: PCO2 Arterial 50.3 mmHg (35-45); PO2 Arterial 87.9 mmHg (80-100)
[2020-04-01 14:58] LABS: PO2 Arterial 67.1 mmHg (80-100)
[2020-04-01 14:59] LABS: PCO2 Arterial 53.8 mmHg (35-45); pH Blood Arterial 7.09 (7.35-7.45)
[2020-04-01 17:18] LABS: PCO2 Arterial 53.1 mmHg (35-45); PO2 Arterial 60.3 mmHg (80-100)
[2020-04-01 18:03] LABS: PCO2 Arterial 46.7 mmHg (35-45); PO2 Arterial 87.9 mmHg (80-100); pH Blood Arterial 7.15 (7.35-7.45)
[2020-04-01 21:00] LABS: PCO2 Arterial 49.1 mmHg (35-45); PO2 Arterial 71.9 mmHg (80-100)
[2020-04-01 21:01] LABS: pH Blood Arterial 7.15 (7.35-7.45)
[2020-04-01 21:25] LABS: Vancomycin, Trough 17.7 ug/mL (5.0-10.0)
[2020-04-02 00:05] LABS: PCO2 Arterial 48.8 mmHg (35-45); PO2 Arterial 67.5 mmHg (80-100); pH Blood Arterial 7.18 (7.35-7.45)
[2020-04-02 04:11] LABS: BASOPHILS ABSOLUTE AUTO 0.07 K/mm3 (0.00-0.23); BASOPHILS PERCENT AUTO 0 % (0-2); EOSINOPHILS PERCENT AUTO 0 % (0-6); Hematocrit 28.6 % (33.0-51.0); Hemoglobin 9.2 g/dL (11.5-16.0); IMMATURE GRAN ABSOLUTE AUTO 0.33 K/mm3 (0.00-0.10); IMMATURE GRAN PERCENT AUTO 1 % (0-1); LYMPHOCYTES PERCENT AUTO 1 % (21-46); MONOCYTES ABSOLUTE AUTO 0.54 K/mm3 (0.16-1.47); MONOCYTES PERCENT AUTO 2 % (4-13); Mean Corpuscular HGB 27.9 pg (26.0-34.0); Mean Corpuscular HGB Conc 32.2 g/dL (31.5-36.5); Mean Corpuscular Volume 87 fL (80-100); Mean Platelet Volume 10.6 fL (9.1-12.4); NEUTROPHILS ABSOLUTE AUTO 28.21 K/mm3 (1.96-9.15); NEUTROPHILS PERCENT AUTO 96 % (41-73); Platelet Count 250 K/mm3 (150-400); RDW Coefficient Variation 15.4 % (11.7-14.2); RDW Standard Deviation 49.1 fL (35.1-46.3); White Blood Cell Count 29.55 K/mm3 (4.00-11.30)
[2020-04-02 04:45] LABS: Magnesium, Blood 1.2 mg/dL (1.6-2.4)
[2020-04-02 04:53] LABS: Alanine Aminotransfer (ALT/SGP 22 U/L (12-78); Albumin, Blood 3.1 g/dL (3.4-5.0); Albumin/Globulin Ratio 1.5 (0.8-1.8); Alk Phos 31 U/L (50-136); Anion Gap 10 mmol/L (6-16); Aspartate Aminotrans (AST/SGOT 54 U/L (12-37); Bilirubin, Total 0.6 mg/dL (0.1-1.0); Blood Urea Nitrogen 17 mg/dL (8-24); Bun/Creatinine Ratio 12.1 (12.0-20.0); CO2, Blood 22 mmol/L (21-32); Calcium, Blood 5.2 mg/dL (8.5-10.1); Chloride, Blood 99 mmol/L (98-108); Globulin, Blood 2.1 g/dL (2.2-4.0); Glomerular Filtration Rate 42 (60-); Glucose, Blood 253 mg/dL (70-99); Phosphorus, Blood 2.9 mg/dL (2.5-4.9); Potassium, Blood 3.9 mmol/L (3.5-5.5); Sodium, Blood 131 mmol/L (136-145); Total Protein, Blood 5.2 g/dL (6.4-8.2); Troponin I 0.603 ng/mL (0.000-0.040)
[2020-04-02 05:24] LABS: PCO2 Arterial 47.8 mmHg (35-45); PO2 Arterial 81.6 mmHg (80-100); pH Blood Arterial 7.24 (7.35-7.45)
[2020-04-02 06:16] LABS: Source, Urine Catheter
[2020-04-02 06:19] LABS: Appearance, Urine Cloudy (Clear); Bilirubin, Urine Neg (Neg); Blood, Urine 3+ (Neg); Color, Urine Amber (P-Yellow); Glucose Qualitative, Urine Neg (Neg); Ketones, Urine 1+ (Neg); Leukocyte Esterase, Urine 1+ (Neg); Nitrite, Urine Neg (Neg); Protein, Urine 3+ (Neg); Urobilinogen, Urine 2+ (Normal)
[2020-04-02 06:28] LABS: Squamous Epithelial Cells Mod /hpf (Few)
[2020-04-02 06:29] LABS: Amorphous Heavy (0-Heavy); Bacteria Mod /hpf; Transitional Epithelial Cells Mod /hpf (0-Rare)
[2020-04-02 06:30] LABS: Renal Epithelial Rare /hpf (0-Rare)
[2020-04-02 10:36] LABS: PO2 Arterial 67.6 mmHg (80-100); pH Blood Arterial 7.14 (7.35-7.45)
[2020-04-02 12:29] LABS: PCO2 Arterial 59.5 mmHg (35-45); PO2 Arterial 82.6 mmHg (80-100)
[2020-04-02 12:30] LABS: pH Blood Arterial 7.19 (7.35-7.45)
[2020-04-02 15:29] LABS: PO2 Arterial 92.9 mmHg (80-100)
[2020-04-02 15:30] LABS: PCO2 Arterial 93.2 mmHg (35-45)
[2020-04-02 16:16] LABS: PO2 Arterial 93.1 mmHg (80-100)
[2020-04-02 16:17] LABS: pH Blood Arterial 7.07 (7.35-7.45)
[2020-04-02 19:29] LABS: PO2 Arterial 93.2 mmHg (80-100)
[2020-04-02 19:30] LABS: pH Blood Arterial 7.11 (7.35-7.45)
[2020-04-02 21:41] LABS: Vancomycin, Trough 34.1 ug/mL (5.0-10.0)
[2020-04-02 22:41] LABS: PO2 Arterial 67.5 mmHg (80-100)
[2020-04-02 22:42] LABS: PCO2 Arterial 76.7 mmHg (35-45); pH Blood Arterial 7.15 (7.35-7.45)
[2020-04-03 01:43] LABS: pH Blood Arterial 7.15 (7.35-7.45)
[2020-04-03 01:44] LABS: PCO2 Arterial 79.8 mmHg (35-45)
[2020-04-03 04:36] LABS: BASOPHILS ABSOLUTE AUTO 0.12 K/mm3 (0.00-0.23); BASOPHILS PERCENT AUTO 0 % (0-2); EOSINOPHILS PERCENT AUTO 0 % (0-6); Hematocrit 30.5 % (33.0-51.0); Hemoglobin 9.8 g/dL (11.5-16.0); IMMATURE GRAN ABSOLUTE AUTO 0.83 K/mm3 (0.00-0.10); IMMATURE GRAN PERCENT AUTO 2 % (0-1); LYMPHOCYTES PERCENT AUTO 2 % (21-46); MONOCYTES ABSOLUTE AUTO 1.38 K/mm3 (0.16-1.47); MONOCYTES PERCENT AUTO 3 % (4-13); Mean Corpuscular HGB 27.9 pg (26.0-34.0); Mean Corpuscular HGB Conc 32.1 g/dL (31.5-36.5); Mean Corpuscular Volume 87 fL (80-100); Mean Platelet Volume 10.9 fL (9.1-12.4); NEUTROPHILS ABSOLUTE AUTO 38.64 K/mm3 (1.96-9.15); NEUTROPHILS PERCENT AUTO 92 % (41-73); Platelet Count 248 K/mm3 (150-400); RDW Coefficient Variation 15.5 % (11.7-14.2); Red Blood Cell Count 3.51 M/mm3 (3.80-5.20); White Blood Cell Count 41.87 K/mm3 (4.00-11.30)
[2020-04-03 04:47] LABS: PO2 Arterial 67.8 mmHg (80-100)
[2020-04-03 04:48] LABS: PCO2 Arterial 79.3 mmHg (35-45); pH Blood Arterial 7.17 (7.35-7.45)
[2020-04-03 04:58] LABS: Albumin, Blood 2.7 g/dL (3.4-5.0); Anion Gap 10 mmol/L (6-16); Blood Urea Nitrogen 21 mg/dL (8-24); Bun/Creatinine Ratio 10.9 (12.0-20.0); CO2, Blood 30 mmol/L (21-32); Calcium, Blood 5.3 mg/dL (8.5-10.1); Chloride, Blood 87 mmol/L (98-108); Creatinine, Blood 1.92 mg/dL (0.40-1.00); Glomerular Filtration Rate 29 (60-); Glucose, Blood 196 mg/dL (70-99); Potassium, Blood 3.6 mmol/L (3.5-5.5); Sodium, Blood 127 mmol/L (136-145); Vancomycin, Random 33.1 ug/mL
[2020-04-03 05:10] LABS: Phosphorus, Blood 6.6 mg/dL (2.5-4.9)
[2020-04-03 07:47] LABS: PO2 Arterial 76.3 mmHg (80-100); pH Blood Arterial 7.19 (7.35-7.45)
[2020-04-03 07:48] LABS: PCO2 Arterial 79.1 mmHg (35-45)
[2020-04-03 13:58] LABS: PCO2 Arterial 86.5 mmHg (35-45); PO2 Arterial 74.1 mmHg (80-100); pH Blood Arterial 7.18 (7.35-7.45)
[2020-04-04 03:38] LABS: PCO2 Arterial 93.1 mmHg (35-45); PO2 Arterial 62.1 mmHg (80-100); pH Blood Arterial 7.21 (7.35-7.45)
[2020-04-04 03:56] LABS: BASOPHILS ABSOLUTE AUTO 0.07 K/mm3 (0.00-0.23); BASOPHILS PERCENT AUTO 0 % (0-2); EOSINOPHILS PERCENT AUTO 0 % (0-6); Hematocrit 31.1 % (33.0-51.0); Hemoglobin 9.7 g/dL (11.5-16.0); IMMATURE GRAN ABSOLUTE AUTO 0.47 K/mm3 (0.00-0.10); IMMATURE GRAN PERCENT AUTO 2 % (0-1); LYMPHOCYTES ABSOLUTE AUTO 0.46 K/mm3 (0.84-5.20); LYMPHOCYTES PERCENT AUTO 2 % (21-46); MONOCYTES ABSOLUTE AUTO 1.32 K/mm3 (0.16-1.47); MONOCYTES PERCENT AUTO 4 % (4-13); Mean Corpuscular HGB 27.4 pg (26.0-34.0); Mean Corpuscular HGB Conc 31.2 g/dL (31.5-36.5); Mean Corpuscular Volume 88 fL (80-100); Mean Platelet Volume 10.7 fL (9.1-12.4); NEUTROPHILS ABSOLUTE AUTO 29.16 K/mm3 (1.96-9.15); NEUTROPHILS PERCENT AUTO 93 % (41-73); NRBC ABSOLUTE 0.03 K/mm3 (0.00-0.02); NRBC Auto 0.1 /100 WBC (0.0-0.2); Platelet Count 199 K/mm3 (150-400); RDW Coefficient Variation 15.6 % (11.7-14.2); RDW Standard Deviation 50.4 fL (35.1-46.3); Red Blood Cell Count 3.54 M/mm3 (3.80-5.20); White Blood Cell Count 31.48 K/mm3 (4.00-11.30)
[2020-04-04 04:12] LABS: BAND PERCENT MAN 13 % (0-8); BASOPHILS PERCENT MAN 0 % (0-2); EOSINOPHILS PERCENT MAN 0 % (0-6); MONOCYTES ABSOLUTE MAN 4.09 K/mm3 (0.16-1.47); MONOCYTES PERCENT MAN 13 % (4-13); NEUTROPHILS ABSOLUTE MAN 27.07 K/mm3 (1.96-9.15); SEG NEUTROPHILS PERCENT MAN 73 % (41-73); TOTAL CELLS COUNTED 15
[2020-04-04 04:13] LABS: Anion Gap 7 mmol/L (6-16); Blood Urea Nitrogen 28 mg/dL (8-24); Bun/Creatinine Ratio 11.7 (12.0-20.0); CO2, Blood 38 mmol/L (21-32); Calcium, Blood 6.7 mg/dL (8.5-10.1); Chloride, Blood 79 mmol/L (98-108); Glomerular Filtration Rate 22 (60-); Glucose, Blood 199 mg/dL (70-99); Magnesium, Blood 2.1 mg/dL (1.6-2.4); Phosphorus, Blood 7.5 mg/dL (2.5-4.9); Potassium, Blood 3.7 mmol/L (3.5-5.5); Sodium, Blood 124 mmol/L (136-145); Vancomycin, Random 27.5 ug/mL
[2020-04-04 13:37] LABS: PO2 Arterial 63.5 mmHg (80-100); pH Blood Arterial 7.31 (7.35-7.45)
[2020-04-04 13:39] LABS: PCO2 Arterial 75.2 mmHg (35-45)
[2020-04-04 14:11] LABS: Albumin, Blood 2.5 g/dL (3.4-5.0); Anion Gap 12 mmol/L (6-16); Blood Urea Nitrogen 31 mg/dL (8-24); CO2, Blood 36 mmol/L (21-32); Calcium, Blood 6.6 mg/dL (8.5-10.1); Chloride, Blood 77 mmol/L (98-108); Creatinine, Blood 2.39 mg/dL (0.40-1.00); Glomerular Filtration Rate 23 (60-); Glucose, Blood 145 mg/dL (70-99); Phosphorus, Blood 7.2 mg/dL (2.5-4.9); Potassium, Blood 3.2 mmol/L (3.5-5.5); Sodium, Blood 125 mmol/L (136-145)
[2020-04-05 04:22] LABS: PCO2 Arterial 73.9 mmHg (35-45); PO2 Arterial 62.7 mmHg (80-100); pH Blood Arterial 7.35 (7.35-7.45)
[2020-04-05 05:05] LABS: Hematocrit 25.9 % (33.0-51.0); Hemoglobin 8.7 g/dL (11.5-16.0); Mean Corpuscular HGB 27.7 pg (26.0-34.0); Mean Corpuscular HGB Conc 33.6 g/dL (31.5-36.5); Mean Platelet Volume 11.6 fL (9.1-12.4); NRBC ABSOLUTE 0.02 K/mm3 (0.00-0.02); NRBC Auto 0.1 /100 WBC (0.0-0.2); Platelet Count 121 K/mm3 (150-400); RDW Coefficient Variation 15.1 % (11.7-14.2); RDW Standard Deviation 45.4 fL (35.1-46.3); Red Blood Cell Count 3.14 M/mm3 (3.80-5.20); White Blood Cell Count 22.83 K/mm3 (4.00-11.30)
[2020-04-05 05:21] LABS: Mean Corpuscular Volume 83 fL (80-100)
[2020-04-05 05:32] LABS: International Normalized Ratio 0.99; Prothrombin Time Results 10.6 Sec (9.7-11.5)
[2020-04-05 05:55] LABS: BAND PERCENT MAN 4 % (0-8); BASOPHILS PERCENT MAN 0 % (0-2); EOSINOPHILS PERCENT MAN 0 % (0-6); LYMPHOCYTES ABSOLUTE MAN 0.22 K/mm3 (0.84-5.20); LYMPHOCYTES PERCENT MAN 1 % (21-46); MONOCYTES ABSOLUTE MAN 1.14 K/mm3 (0.16-1.47); MONOCYTES PERCENT MAN 5 % (4-13); NEUTROPHILS ABSOLUTE MAN 21.46 K/mm3 (1.96-9.15); SEG NEUTROPHILS PERCENT MAN 90 % (41-73); TOTAL CELLS COUNTED 100
[2020-04-05 06:01] LABS: Albumin, Blood 2.6 g/dL (3.4-5.0); Anion Gap 11 mmol/L (6-16); Blood Urea Nitrogen 36 mg/dL (8-24); Bun/Creatinine Ratio 14.1 (12.0-20.0); CO2, Blood 40 mmol/L (21-32); Calcium, Blood 7.2 mg/dL (8.5-10.1); Chloride, Blood 74 mmol/L (98-108); Creatinine, Blood 2.56 mg/dL (0.40-1.00); Glomerular Filtration Rate 21 (60-); Glucose, Blood 153 mg/dL (70-99); Magnesium, Blood 2.2 mg/dL (1.6-2.4); Phosphorus, Blood 6.2 mg/dL (2.5-4.9); Potassium, Blood 3.4 mmol/L (3.5-5.5); Sodium, Blood 125 mmol/L (136-145); Uric Acid, Blood 5.3 mg/dL (2.6-6.0); Vancomycin, Random 26.2 ug/mL
[2020-04-05 13:31] LABS: Vancomycin, Random 26.2 ug/mL
[2020-04-05 15:01] LABS: Albumin, Blood 2.7 g/dL (3.4-5.0); Anion Gap 14 mmol/L (6-16); Blood Urea Nitrogen 41 mg/dL (8-24); Bun/Creatinine Ratio 15.4 (12.0-20.0); CO2, Blood 38 mmol/L (21-32); Calcium, Blood 7.2 mg/dL (8.5-10.1); Chloride, Blood 72 mmol/L (98-108); Creatinine, Blood 2.66 mg/dL (0.40-1.00); Glomerular Filtration Rate 20 (60-); Glucose, Blood 104 mg/dL (70-99); Phosphorus, Blood 6.6 mg/dL (2.5-4.9); Potassium, Blood 3.2 mmol/L (3.5-5.5); Sodium, Blood 124 mmol/L (136-145)
[2020-04-05 16:26] LABS: pH Blood Arterial 7.45 (7.35-7.45)
[2020-04-05 22:11] LABS: PCO2 Arterial 57.5 mmHg (35-45); PO2 Arterial 58.7 mmHg (80-100); pH Blood Arterial 7.48 (7.35-7.45)
[2020-04-06 03:33] LABS: BASOPHILS ABSOLUTE AUTO 0.06 K/mm3 (0.00-0.23); BASOPHILS PERCENT AUTO 0 % (0-2); EOSINOPHILS PERCENT AUTO 0 % (0-6); Hematocrit 25.5 % (33.0-51.0); Hemoglobin 8.6 g/dL (11.5-16.0); IMMATURE GRAN ABSOLUTE AUTO 0.34 K/mm3 (0.00-0.10); IMMATURE GRAN PERCENT AUTO 2 % (0-1); LYMPHOCYTES ABSOLUTE AUTO 0.34 K/mm3 (0.84-5.20); LYMPHOCYTES PERCENT AUTO 2 % (21-46); MONOCYTES ABSOLUTE AUTO 0.71 K/mm3 (0.16-1.47); MONOCYTES PERCENT AUTO 4 % (4-13); Mean Corpuscular HGB 26.9 pg (26.0-34.0); Mean Corpuscular HGB Conc 33.7 g/dL (31.5-36.5); Mean Corpuscular Volume 80 fL (80-100); Mean Platelet Volume 11.4 fL (9.1-12.4); NEUTROPHILS PERCENT AUTO 93 % (41-73); Platelet Count 128 K/mm3 (150-400); RDW Coefficient Variation 14.7 % (11.7-14.2); RDW Standard Deviation 43.3 fL (35.1-46.3); White Blood Cell Count 20.25 K/mm3 (4.00-11.30)
[2020-04-06 03:46] LABS: Albumin, Blood 2.5 g/dL (3.4-5.0); Anion Gap 9 mmol/L (6-16); Blood Urea Nitrogen 49 mg/dL (8-24); Bun/Creatinine Ratio 16.8 (12.0-20.0); CO2, Blood 41 mmol/L (21-32); Calcium, Blood 8.2 mg/dL (8.5-10.1); Chloride, Blood 74 mmol/L (98-108); Creatinine, Blood 2.92 mg/dL (0.40-1.00); Glomerular Filtration Rate 18 (60-); Glucose, Blood 111 mg/dL (70-99); Magnesium, Blood 2.1 mg/dL (1.6-2.4); Phosphorus, Blood 5.8 mg/dL (2.5-4.9); Potassium, Blood 3.5 mmol/L (3.5-5.5); Sodium, Blood 124 mmol/L (136-145)
[2020-04-06 05:03] LABS: PCO2 Arterial 58.5 mmHg (35-45); PO2 Arterial 83.5 mmHg (80-100); pH Blood Arterial 7.47 (7.35-7.45)
[2020-04-06 08:10] LABS: HBSAG SCREEN Negative (Negative)
[2020-04-06 12:04] LABS: Vancomycin, Random 23.7 ug/mL
[2020-04-06 16:58] LABS: BASOPHILS ABSOLUTE AUTO 0.11 K/mm3 (0.00-0.23); BASOPHILS PERCENT AUTO 0 % (0-2); EOSINOPHILS PERCENT AUTO 0 % (0-6); Hematocrit 25.8 % (33.0-51.0); Hemoglobin 8.9 g/dL (11.5-16.0); IMMATURE GRAN ABSOLUTE AUTO 0.72 K/mm3 (0.00-0.10); IMMATURE GRAN PERCENT AUTO 3 % (0-1); LYMPHOCYTES ABSOLUTE AUTO 0.46 K/mm3 (0.84-5.20); LYMPHOCYTES PERCENT AUTO 2 % (21-46); MONOCYTES ABSOLUTE AUTO 0.93 K/mm3 (0.16-1.47); MONOCYTES PERCENT AUTO 4 % (4-13); Mean Corpuscular HGB 27.3 pg (26.0-34.0); Mean Corpuscular HGB Conc 34.5 g/dL (31.5-36.5); Mean Corpuscular Volume 79 fL (80-100); Mean Platelet Volume 11.8 fL (9.1-12.4); NEUTROPHILS ABSOLUTE AUTO 22.26 K/mm3 (1.96-9.15); NEUTROPHILS PERCENT AUTO 91 % (41-73); Platelet Count 136 K/mm3 (150-400); RDW Coefficient Variation 14.9 % (11.7-14.2); RDW Standard Deviation 42.8 fL (35.1-46.3); Red Blood Cell Count 3.26 M/mm3 (3.80-5.20); White Blood Cell Count 24.48 K/mm3 (4.00-11.30)
[2020-04-06 17:18] LABS: Albumin, Blood 2.5 g/dL (3.4-5.0); Bilirubin, Total 0.6 mg/dL (0.1-1.0); Bun/Creatinine Ratio 19.2 (12.0-20.0); Calcium, Blood 8.3 mg/dL (8.5-10.1); Creatinine, Blood 3.08 mg/dL (0.40-1.00); Globulin, Blood 2.6 g/dL (2.2-4.0); Magnesium, Blood 2.2 mg/dL (1.6-2.4); Phosphorus, Blood 5.4 mg/dL (2.5-4.9); Potassium, Blood 3.6 mmol/L (3.5-5.5); Total Protein, Blood 5.1 g/dL (6.4-8.2)
[2020-04-06 19:04] LABS: Protein, Urine Quantitative 60.7 mg/dL (0.0-11.9)
[2020-04-07 03:21] LABS: BASOPHILS PERCENT AUTO 0 % (0-2); EOSINOPHILS PERCENT AUTO 0 % (0-6); Hematocrit 24.1 % (33.0-51.0); Hemoglobin 8.3 g/dL (11.5-16.0); IMMATURE GRAN ABSOLUTE AUTO 0.86 K/mm3 (0.00-0.10); IMMATURE GRAN PERCENT AUTO 4 % (0-1); LYMPHOCYTES ABSOLUTE AUTO 0.42 K/mm3 (0.84-5.20); LYMPHOCYTES PERCENT AUTO 2 % (21-46); MONOCYTES ABSOLUTE AUTO 0.79 K/mm3 (0.16-1.47); MONOCYTES PERCENT AUTO 3 % (4-13); Mean Corpuscular HGB 27.4 pg (26.0-34.0); Mean Corpuscular HGB Conc 34.4 g/dL (31.5-36.5); Mean Corpuscular Volume 80 fL (80-100); Mean Platelet Volume 11.3 fL (9.1-12.4); NEUTROPHILS ABSOLUTE AUTO 20.98 K/mm3 (1.96-9.15); NEUTROPHILS PERCENT AUTO 91 % (41-73); NRBC ABSOLUTE 0.02 K/mm3 (0.00-0.02); NRBC Auto 0.1 /100 WBC (0.0-0.2); Platelet Count 148 K/mm3 (150-400); RDW Coefficient Variation 14.9 % (11.7-14.2); RDW Standard Deviation 43.1 fL (35.1-46.3); Red Blood Cell Count 3.03 M/mm3 (3.80-5.20); White Blood Cell Count 23.15 K/mm3 (4.00-11.30)
[2020-04-07 03:42] LABS: Albumin, Blood 2.2 g/dL (3.4-5.0); Anion Gap 9 mmol/L (6-16); Blood Urea Nitrogen 63 mg/dL (8-24); Bun/Creatinine Ratio 19.9 (12.0-20.0); CO2, Blood 40 mmol/L (21-32); Calcium, Blood 7.8 mg/dL (8.5-10.1); Chloride, Blood 76 mmol/L (98-108); Creatinine, Blood 3.17 mg/dL (0.40-1.00); Glomerular Filtration Rate 16 (60-); Glucose, Blood 120 mg/dL (70-99); Magnesium, Blood 2.2 mg/dL (1.6-2.4); Phosphorus, Blood 5.3 mg/dL (2.5-4.9); Potassium, Blood 3.2 mmol/L (3.5-5.5); Sodium, Blood 125 mmol/L (136-145)
[2020-04-07 10:11] LABS: Base Excess Venous 17.9 mmol/L; Bicarbonate Venous 40.3 mmol/L (24.0-30.0); PCO2 Venous 43.5 mmHg (38-42); PO2 Venous 133 mmHg (38-42); pH Blood Venous 7.57 (7.34-7.37)
[2020-04-07 17:43] LABS: Vancomycin, Random 13.2 ug/mL
[2020-04-08 03:32] LABS: Hematocrit 27.2 % (33.0-51.0); Mean Corpuscular HGB 26.9 pg (26.0-34.0); Mean Corpuscular HGB Conc 33.1 g/dL (31.5-36.5); Mean Corpuscular Volume 81 fL (80-100); Mean Platelet Volume 11.2 fL (9.1-12.4); NRBC ABSOLUTE 0.02 K/mm3 (0.00-0.02); NRBC Auto 0.1 /100 WBC (0.0-0.2); Platelet Count 172 K/mm3 (150-400); RDW Coefficient Variation 15.6 % (11.7-14.2); Red Blood Cell Count 3.35 M/mm3 (3.80-5.20); White Blood Cell Count 26.91 K/mm3 (4.00-11.30)
[2020-04-08 03:50] LABS: Albumin, Blood 2.2 g/dL (3.4-5.0); Albumin/Globulin Ratio 0.7 (0.8-1.8); BAND PERCENT MAN 5 % (0-8); BASOPHILS PERCENT MAN 0 % (0-2); Bilirubin, Direct 0.2 mg/dL (0.0-0.3); Bilirubin, Indirect 0.2 mg/dL (0.1-0.7); Bilirubin, Total 0.4 mg/dL (0.1-1.0); Bun/Creatinine Ratio 19.9 (12.0-20.0); Calcium, Blood 8.2 mg/dL (8.5-10.1); Creatinine, Blood 2.36 mg/dL (0.40-1.00); EOSINOPHILS ABSOLUTE MAN 0.26 K/mm3 (0.00-0.68); EOSINOPHILS PERCENT MAN 1 % (0-6); METAMYELOCYTE ABSOLUTE MAN 0.53 K/mm3 (0.00-0.00); METAMYELOCYTE PERCENT MAN 2 % (0-0); MONOCYTES ABSOLUTE MAN 1.88 K/mm3 (0.16-1.47); MONOCYTES PERCENT MAN 7 % (4-13); MYELOCYTE PERCENT MAN 3 % (0-0); Magnesium, Blood 2.1 mg/dL (1.6-2.4); NEUTROPHILS ABSOLUTE MAN 23.41 K/mm3 (1.96-9.15); Phosphorus, Blood 3.1 mg/dL (2.5-4.9); Potassium, Blood 3.4 mmol/L (3.5-5.5); SEG NEUTROPHILS PERCENT MAN 82 % (41-73); TOTAL CELLS COUNTED 100; Total Protein, Blood 5.2 g/dL (6.4-8.2)
[2020-04-08 14:55] LABS: Base Excess Venous 15.9 mmol/L; Bicarbonate Venous 38.2 mmol/L (24.0-30.0); PCO2 Venous 44.5 mmHg (38-42); PO2 Venous 65.9 mmHg (38-42); pH Blood Venous 7.54 (7.34-7.37)
[2020-04-08 15:09] LABS: Bun/Creatinine Ratio 20.6 (12.0-20.0); Calcium, Blood 8.5 mg/dL (8.5-10.1); Creatinine, Blood 2.53 mg/dL (0.40-1.00); Potassium, Blood 3.7 mmol/L (3.5-5.5)
[2020-04-09 03:57] LABS: Hematocrit 25.8 % (33.0-51.0); Hemoglobin 8.4 g/dL (11.5-16.0); Mean Corpuscular HGB 26.8 pg (26.0-34.0); Mean Corpuscular HGB Conc 32.6 g/dL (31.5-36.5); Mean Corpuscular Volume 82 fL (80-100); Mean Platelet Volume 11.4 fL (9.1-12.4); NRBC ABSOLUTE 0.02 K/mm3 (0.00-0.02); NRBC Auto 0.1 /100 WBC (0.0-0.2); Platelet Count 171 K/mm3 (150-400); RDW Standard Deviation 46.6 fL (35.1-46.3); Red Blood Cell Count 3.14 M/mm3 (3.80-5.20); White Blood Cell Count 26.13 K/mm3 (4.00-11.30)
[2020-04-09 04:17] LABS: Albumin, Blood 2.1 g/dL (3.4-5.0); Albumin/Globulin Ratio 0.6 (0.8-1.8); Bilirubin, Direct 0.1 mg/dL (0.0-0.3); Bilirubin, Indirect 0.3 mg/dL (0.1-0.7); Bilirubin, Total 0.4 mg/dL (0.1-1.0); Bun/Creatinine Ratio 21.7 (12.0-20.0); Calcium, Blood 8.3 mg/dL (8.5-10.1); Creatinine, Blood 2.58 mg/dL (0.40-1.00); Globulin, Blood 3.3 g/dL (2.2-4.0); Phosphorus, Blood 3.1 mg/dL (2.5-4.9); Potassium, Blood 3.4 mmol/L (3.5-5.5); Total Protein, Blood 5.4 g/dL (6.4-8.2)
[2020-04-09 04:47] LABS: BAND PERCENT MAN 10 % (0-8); BASOPHILS PERCENT MAN 0 % (0-2); EOSINOPHILS PERCENT MAN 0 % (0-6); LYMPHOCYTES PERCENT MAN 5 % (21-46); METAMYELOCYTE ABSOLUTE MAN 0.26 K/mm3 (0.00-0.00); METAMYELOCYTE PERCENT MAN 1 % (0-0); MONOCYTES PERCENT MAN 5 % (4-13); MYELOCYTE ABSOLUTE MAN 2.61 K/mm3 (0.00-0.00); MYELOCYTE PERCENT MAN 10 % (0-0); NEUTROPHILS ABSOLUTE MAN 20.64 K/mm3 (1.96-9.15); SEG NEUTROPHILS PERCENT MAN 69 % (41-73); TOTAL CELLS COUNTED 100
[2020-04-10 03:35] LABS: Hematocrit 25.3 % (33.0-51.0); Hemoglobin 8.1 g/dL (11.5-16.0); Mean Corpuscular HGB 27.2 pg (26.0-34.0); Mean Corpuscular Volume 85 fL (80-100); Mean Platelet Volume 11.6 fL (9.1-12.4); Platelet Count 147 K/mm3 (150-400); RDW Coefficient Variation 17.1 % (11.7-14.2); RDW Standard Deviation 50.3 fL (35.1-46.3); Red Blood Cell Count 2.98 M/mm3 (3.80-5.20); White Blood Cell Count 22.37 K/mm3 (4.00-11.30)
[2020-04-10 03:56] LABS: Albumin/Globulin Ratio 0.6 (0.8-1.8); Bilirubin, Direct 0.1 mg/dL (0.0-0.3); Bilirubin, Indirect 0.2 mg/dL (0.1-0.7); Bilirubin, Total 0.3 mg/dL (0.1-1.0); Bun/Creatinine Ratio 21.6 (12.0-20.0); Calcium, Blood 8.2 mg/dL (8.5-10.1); Creatinine, Blood 1.76 mg/dL (0.40-1.00); Globulin, Blood 3.4 g/dL (2.2-4.0); Magnesium, Blood 1.8 mg/dL (1.6-2.4); Phosphorus, Blood 2.4 mg/dL (2.5-4.9); Potassium, Blood 3.1 mmol/L (3.5-5.5); Total Protein, Blood 5.4 g/dL (6.4-8.2)
[2020-04-10 04:45] LABS: BAND PERCENT MAN 2 % (0-8); BASOPHILS PERCENT MAN 0 % (0-2); EOSINOPHILS PERCENT MAN 0 % (0-6); LYMPHOCYTES ABSOLUTE MAN 2.01 K/mm3 (0.84-5.20); LYMPHOCYTES PERCENT MAN 9 % (21-46); METAMYELOCYTE ABSOLUTE MAN 0.67 K/mm3 (0.00-0.00); METAMYELOCYTE PERCENT MAN 3 % (0-0); MONOCYTES ABSOLUTE MAN 0.67 K/mm3 (0.16-1.47); MONOCYTES PERCENT MAN 3 % (4-13); MYELOCYTE ABSOLUTE MAN 3.57 K/mm3 (0.00-0.00); MYELOCYTE PERCENT MAN 16 % (0-0); NEUTROPHILS ABSOLUTE MAN 15.43 K/mm3 (1.96-9.15); SEG NEUTROPHILS PERCENT MAN 67 % (41-73); TOTAL CELLS COUNTED 100
[2020-04-10 08:09] LABS: ANTIGLOMERULAR BM AB 2 units (0-20)
[2020-04-10 14:08] LABS: M-SPIKE, % Not Observed % (Not Observed); PROTEIN,TOTAL,URINE 44.2 mg/dL (Not Estab.)
[2020-04-10 16:08] LABS: A/G RATIO 1.4 (0.7-1.7); ALBUMIN 2.7 g/dL (2.9-4.4); ALPHA-1-GLOBULIN 0.4 g/dL (0.0-0.4); ALPHA-2-GLOBULIN 0.9 g/dL (0.4-1.0); BETA GLOBULIN 0.4 g/dL (0.7-1.3); GAMMA GLOBULIN 0.3 g/dL (0.4-1.8); IMMUNOGLOBULIN A, QN, SERUM 58 mg/dL (87-352); IMMUNOGLOBULIN G, QN, SERUM 321 mg/dL (586-1602); IMMUNOGLOBULIN M, QN, SERUM 25 mg/dL (26-217); M-SPIKE Not Observed g/dL (Not Observed); PROTEIN, TOTAL, SERUM 4.7 g/dL (6.0-8.5)
[2020-04-11 03:31] LABS: Hematocrit 24.3 % (33.0-51.0); Hemoglobin 7.6 g/dL (11.5-16.0); Mean Corpuscular HGB 26.8 pg (26.0-34.0); Mean Corpuscular HGB Conc 31.3 g/dL (31.5-36.5); Mean Corpuscular Volume 86 fL (80-100); Mean Platelet Volume 11.6 fL (9.1-12.4); Platelet Count 133 K/mm3 (150-400); RDW Coefficient Variation 17.7 % (11.7-14.2); RDW Standard Deviation 51.4 fL (35.1-46.3); Red Blood Cell Count 2.84 M/mm3 (3.80-5.20); White Blood Cell Count 19.88 K/mm3 (4.00-11.30)
[2020-04-11 03:50] LABS: Anion Gap 7 mmol/L (6-16); Blood Urea Nitrogen 47 mg/dL (8-24); Bun/Creatinine Ratio 26.3 (12.0-20.0); CO2, Blood 35 mmol/L (21-32); Calcium, Blood 8.3 mg/dL (8.5-10.1); Chloride, Blood 100 mmol/L (98-108); Creatinine, Blood 1.79 mg/dL (0.40-1.00); Glomerular Filtration Rate 31 (60-); Glucose, Blood 107 mg/dL (70-99); Magnesium, Blood 1.7 mg/dL (1.6-2.4); Phosphorus, Blood 3.7 mg/dL (2.5-4.9); Sodium, Blood 142 mmol/L (136-145)
[2020-04-11 05:34] LABS: BAND PERCENT MAN 1 % (0-8); BASOPHILS PERCENT MAN 0 % (0-2); EOSINOPHILS ABSOLUTE MAN 0.19 K/mm3 (0.00-0.68); EOSINOPHILS PERCENT MAN 1 % (0-6); LYMPHOCYTES ABSOLUTE MAN 1.19 K/mm3 (0.84-5.20); LYMPHOCYTES PERCENT MAN 6 % (21-46); METAMYELOCYTE ABSOLUTE MAN 1.78 K/mm3 (0.00-0.00); METAMYELOCYTE PERCENT MAN 9 % (0-0); MONOCYTES ABSOLUTE MAN 1.59 K/mm3 (0.16-1.47); MONOCYTES PERCENT MAN 8 % (4-13); MYELOCYTE ABSOLUTE MAN 1.19 K/mm3 (0.00-0.00); MYELOCYTE PERCENT MAN 6 % (0-0); NEUTROPHILS ABSOLUTE MAN 13.91 K/mm3 (1.96-9.15); SEG NEUTROPHILS PERCENT MAN 69 % (41-73); TOTAL CELLS COUNTED 100
[2020-04-11 14:09] LABS: ANA DIRECT Negative (Negative); ANTIMYELOPEROXIDASE (MPO) ABS <9.0 U/mL (0.0-9.0); ANTIPROTEINASE 3 (PR-3) ABS <3.5 U/mL (0.0-3.5); ATYPICAL PANCA 1:40 titer (Neg:<1:20); CYTOPLASMIC (C-ANCA) <1:20 titer (Neg:<1:20); PERINUCLEAR (P-ANCA) <1:20 titer (Neg:<1:20)
[2020-04-12 05:34] LABS: Base Excess Venous 9.6 mmol/L; PCO2 Venous 51.4 mmHg (38-42); pH Blood Venous 7.43 (7.34-7.37)
[2020-04-12 05:46] LABS: Hematocrit 25.1 % (33.0-51.0); Hemoglobin 7.9 g/dL (11.5-16.0); Mean Corpuscular HGB 27.5 pg (26.0-34.0); Mean Corpuscular HGB Conc 31.5 g/dL (31.5-36.5); Mean Corpuscular Volume 88 fL (80-100); Mean Platelet Volume 10.9 fL (9.1-12.4); Platelet Count 126 K/mm3 (150-400); RDW Coefficient Variation 18.2 % (11.7-14.2); RDW Standard Deviation 55.9 fL (35.1-46.3); Red Blood Cell Count 2.87 M/mm3 (3.80-5.20); White Blood Cell Count 18.36 K/mm3 (4.00-11.30)
[2020-04-12 06:03] LABS: Albumin, Blood 2.3 g/dL (3.4-5.0); Anion Gap 6 mmol/L (6-16); Blood Urea Nitrogen 45 mg/dL (8-24); Bun/Creatinine Ratio 28.7 (12.0-20.0); CO2, Blood 34 mmol/L (21-32); Calcium, Blood 8.7 mg/dL (8.5-10.1); Chloride, Blood 101 mmol/L (98-108); Creatinine, Blood 1.57 mg/dL (0.40-1.00); Glomerular Filtration Rate 37 (60-); Glucose, Blood 84 mg/dL (70-99); Magnesium, Blood 1.7 mg/dL (1.6-2.4); Phosphorus, Blood 4.4 mg/dL (2.5-4.9); Sodium, Blood 141 mmol/L (136-145)
[2020-04-12 06:14] LABS: BAND PERCENT MAN 1 % (0-8); BASOPHILS PERCENT MAN 0 % (0-2); EOSINOPHILS PERCENT MAN 0 % (0-6); LYMPHOCYTES ABSOLUTE MAN 1.28 K/mm3 (0.84-5.20); LYMPHOCYTES PERCENT MAN 7 % (21-46); METAMYELOCYTE ABSOLUTE MAN 1.46 K/mm3 (0.00-0.00); METAMYELOCYTE PERCENT MAN 8 % (0-0); MONOCYTES ABSOLUTE MAN 1.28 K/mm3 (0.16-1.47); MONOCYTES PERCENT MAN 7 % (4-13); MYELOCYTE ABSOLUTE MAN 0.55 K/mm3 (0.00-0.00); MYELOCYTE PERCENT MAN 3 % (0-0); NEUTROPHILS ABSOLUTE MAN 13.77 K/mm3 (1.96-9.15); SEG NEUTROPHILS PERCENT MAN 74 % (41-73); TOTAL CELLS COUNTED 100
[2020-04-12 11:20] LABS: PO2 Arterial 80.1 mmHg (80-100); pH Blood Arterial 7.25 (7.35-7.45)
[2020-04-12 11:21] LABS: PCO2 Arterial 72 mmHg (35-45)
[2020-04-12 18:06] LABS: PCO2 Arterial 48.7 mmHg (35-45); PO2 Arterial 96.7 mmHg (80-100)
[2020-04-13 04:37] LABS: BASOPHILS ABSOLUTE AUTO 0.04 K/mm3 (0.00-0.23); BASOPHILS PERCENT AUTO 0 % (0-2); EOSINOPHILS ABSOLUTE AUTO 0.02 K/mm3 (0.00-0.68); EOSINOPHILS PERCENT AUTO 0 % (0-6); Hematocrit 23.7 % (33.0-51.0); Hemoglobin 7.3 g/dL (11.5-16.0); IMMATURE GRAN ABSOLUTE AUTO 0.87 K/mm3 (0.00-0.10); IMMATURE GRAN PERCENT AUTO 5 % (0-1); LYMPHOCYTES ABSOLUTE AUTO 1.65 K/mm3 (0.84-5.20); LYMPHOCYTES PERCENT AUTO 10 % (21-46); MONOCYTES PERCENT AUTO 10 % (4-13); Mean Corpuscular HGB 26.9 pg (26.0-34.0); Mean Corpuscular HGB Conc 30.8 g/dL (31.5-36.5); Mean Corpuscular Volume 88 fL (80-100); Mean Platelet Volume 12.1 fL (9.1-12.4); NEUTROPHILS ABSOLUTE AUTO 13.01 K/mm3 (1.96-9.15); NEUTROPHILS PERCENT AUTO 75 % (41-73); Platelet Count 119 K/mm3 (150-400); RDW Coefficient Variation 18.1 % (11.7-14.2); RDW Standard Deviation 56.1 fL (35.1-46.3); Red Blood Cell Count 2.71 M/mm3 (3.80-5.20); White Blood Cell Count 17.39 K/mm3 (4.00-11.30)
[2020-04-13 04:55] LABS: Albumin, Blood 2.2 g/dL (3.4-5.0); Anion Gap 8 mmol/L (6-16); Blood Urea Nitrogen 49 mg/dL (8-24); Bun/Creatinine Ratio 33.8 (12.0-20.0); CO2, Blood 32 mmol/L (21-32); Calcium, Blood 8.5 mg/dL (8.5-10.1); Chloride, Blood 104 mmol/L (98-108); Creatinine, Blood 1.45 mg/dL (0.40-1.00); Glomerular Filtration Rate 40 (60-); Glucose, Blood 103 mg/dL (70-99); Magnesium, Blood 1.6 mg/dL (1.6-2.4); Phosphorus, Blood 4.7 mg/dL (2.5-4.9); Potassium, Blood 3.5 mmol/L (3.5-5.5); Sodium, Blood 144 mmol/L (136-145)
[2020-04-13 05:19] LABS: PCO2 Arterial 44.3 mmHg (35-45); PO2 Arterial 72.3 mmHg (80-100); pH Blood Arterial 7.47 (7.35-7.45)
[2020-04-14 04:55] LABS: Hematocrit 26.9 % (33.0-51.0); Hemoglobin 8.1 g/dL (11.5-16.0); Mean Corpuscular HGB 27.3 pg (26.0-34.0); Mean Corpuscular HGB Conc 30.1 g/dL (31.5-36.5); Mean Corpuscular Volume 91 fL (80-100); Mean Platelet Volume 11.4 fL (9.1-12.4); NRBC ABSOLUTE 0.02 K/mm3 (0.00-0.02); NRBC Auto 0.1 /100 WBC (0.0-0.2); Platelet Count 143 K/mm3 (150-400); RDW Coefficient Variation 18.5 % (11.7-14.2); Red Blood Cell Count 2.97 M/mm3 (3.80-5.20); White Blood Cell Count 21.36 K/mm3 (4.00-11.30)
[2020-04-14 05:14] LABS: BAND PERCENT MAN 9 % (0-8); BASOPHILS PERCENT MAN 0 % (0-2); EOSINOPHILS PERCENT MAN 0 % (0-6); LYMPHOCYTES ABSOLUTE MAN 2.13 K/mm3 (0.84-5.20); LYMPHOCYTES PERCENT MAN 10 % (21-46); MONOCYTES PERCENT MAN 8 % (4-13); MYELOCYTE ABSOLUTE MAN 0.21 K/mm3 (0.00-0.00); MYELOCYTE PERCENT MAN 1 % (0-0); SEG NEUTROPHILS PERCENT MAN 72 % (41-73); TOTAL CELLS COUNTED 100
[2020-04-14 05:17] LABS: Albumin, Blood 2.4 g/dL (3.4-5.0); Anion Gap 4 mmol/L (6-16); Blood Urea Nitrogen 47 mg/dL (8-24); Bun/Creatinine Ratio 35.9 (12.0-20.0); CO2, Blood 34 mmol/L (21-32); Calcium, Blood 8.8 mg/dL (8.5-10.1); Chloride, Blood 105 mmol/L (98-108); Creatinine, Blood 1.31 mg/dL (0.40-1.00); Glomerular Filtration Rate 45 (60-); Glucose, Blood 123 mg/dL (70-99); Magnesium, Blood 2.2 mg/dL (1.6-2.4); Potassium, Blood 3.3 mmol/L (3.5-5.5); Sodium, Blood 143 mmol/L (136-145); Troponin I 0.118 ng/mL (0.000-0.040)
== END 2020-04-14 19:12 | DRG 870 ==
LOC: ER 15:47 → ICUW 19:59
PROVIDERS: Family Medicine; Internal Medicine; Internal Medicine Critical Care Medicine; Internal Medicine Nephrology; Nurse Practitioner Acute Care; Pharmacist; Physician Assistant; ADMIT Internal Medicine
PROC: 05HM33Z Insertion of Infusion Device into Right Internal Jugular Vein, Percutaneous Approach (ICD-10-PCS; principal; 2020-03-31)
PROC: 5A1955Z Respiratory Ventilation, Greater than 96 Consecutive Hours (ICD-10-PCS; 2020-03-31)
PROC: 03H633Z Insertion of Infusion Device into Left Axillary Artery, Percutaneous Approach (ICD-10-PCS; 2020-03-31)
PROC: 3E063XZ Introduction of Vasopressor into Central Artery, Percutaneous Approach (ICD-10-PCS; 2020-03-31)
PROC: 06HM33Z Insertion of Infusion Device into Right Femoral Vein, Percutaneous Approach (ICD-10-PCS; 2020-03-31)
PROC: 0BH18EZ Insertion of Endotracheal Airway into Trachea, Via Natural or Artificial Opening Endoscopic (ICD-10-PCS; 2020-03-31)
PROC: 5A1D70Z Performance of Urinary Filtration, Intermittent, Less than 6 Hours Per Day (ICD-10-PCS; 2020-04-05)
PROC: 5A1D70Z Performance of Urinary Filtration, Intermittent, Less than 6 Hours Per Day (ICD-10-PCS; 2020-04-06)
PROC: 5A1D70Z Performance of Urinary Filtration, Intermittent, Less than 6 Hours Per Day (ICD-10-PCS; 2020-04-07)
PROC: 5A1D70Z Performance of Urinary Filtration, Intermittent, Less than 6 Hours Per Day (ICD-10-PCS; 2020-04-09)
PROC: 0BH18EZ Insertion of Endotracheal Airway into Trachea, Via Natural or Artificial Opening Endoscopic (ICD-10-PCS; 2020-04-13)
PROC: 5A1945Z Respiratory Ventilation, 24-96 Consecutive Hours (ICD-10-PCS; 2020-04-13)
DX: A41.9 Sepsis, unspecified organism (principal); J96.01 Acute respiratory failure with hypoxia; G92 Toxic encephalopathy; R65.21 Severe sepsis with septic shock; J96.02 Acute respiratory failure with hypercapnia; N17.0 Acute kidney failure with tubular necrosis; E87.1 Hypo-osmolality and hyponatremia; E87.4 Mixed disorder of acid-base balance; A04.72 Enterocolitis due to Clostridium difficile, not specified as recurrent; J43.9 Emphysema, unspecified; Z51.5 Encounter for palliative care; F17.210 Nicotine dependence, cigarettes, uncomplicated; K21.9 Gastro-esophageal reflux disease without esophagitis; J47.9 Bronchiectasis, uncomplicated; Z20.828 Contact with and (suspected) exposure to other viral communicable diseases; Z66 Do not resuscitate; F31.70 Bipolar disorder, currently in remission, most recent episode unspecified; Z78.1 Physical restraint status; E83.51 Hypocalcemia; E83.42 Hypomagnesemia; E87.6 Hypokalemia; B19.20 Unspecified viral hepatitis C without hepatic coma; H55.00 Unspecified nystagmus; F43.10 Post-traumatic stress disorder, unspecified
CPT/HCPCS: 0202U; 0241U; 31500; 31720; 36415; 36556; 36569; 36600; 36620; 51702; 70450; 71045; 76770; 80048; 80053; 80069; 80202; 81001; 81050; 82248; 82330; 82533; 82728; 82784; 82803; 82947; 83516; 83520; 83540; 83550; 83605; 83735; 83880; 84100; 84156; 84165; 84166; 84443; 84484; 84550; 85025; 85027; 85379; 85610; 85730; 86038; 86256; 86317; 86334; 86335; 87040; 87070; 87077; 87086; 87106; 87186; 87205; 87324; 87340; 87493; 93005; 93010; 94002; 94003; 94640; 94660; 96361; 96365; 96366; 96367; 96375; 99285-25; A9270; A9270-GY; C1751; C1752; C8929; C9113; J0282; J0330; J0456; J0610; J0696; J0881; J1644; J1650; J1940; J2060; J2250; J2270; J2543; J2704; J2920; J3010; J3370; J3475; J3480; J7030; J7040; J7050; J7060; J7070; J7120; P9046; Q9957